=== PATIENT | female | born 1995 | race Caucasian/White ===

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

== ENCOUNTER 2021-11-13 21:05 | Inpatient (IN) ==
[2021-11-13] MEDS ORDERED: OXYTOCIN 30 UNITS/500 ML BAG IV PRN ×3 (21:56→22:33)
[2021-11-13] MEDS ORDERED: LACTATED RINGER'S 1,000 ML IV PRN ×2 (21:56→22:33)
[2021-11-13 22:33] LABS: Hematocrit (blood only) 36.2 % (34.1-44.9); Mean Corpuscular Hemoglobin 28.7 pg (25.0-34.0); Mean Corpuscular Hgb Conc 33.1 g/dL (32.0-36.0); Mean Corpuscular Volume 86.6 fL (80.0-100.0); Mean Platelet Volume 9.8 fL (9.4-12.3); Platelet Count 357 K/uL (130-400); RDW Coefficient of Variation 12.9 % (11.5-14.5); RDW Standard Deviation 40.4 fL (36.4-46.3); Red Blood Count 4.18 M/uL (3.93-5.22); White Blood Count 13.75 K/ul (4.8-10.8)
--- NOTE | 2021-11-14 00:22 | Labor Progress Brief Note ---
Date of Service November 14, 2021 Assessment & Plan (1) PROM (premature rupture of membranes): Plan: PROM at 20;00HR on 11/13/21 Clear fluid Unremarkable course FHR CAT1 VE; 2/50/-2 ctx 2-4mins Plan admit Pitocin augmentation PRN Admission and Anticipated Discharge Date Admission Date: November 13, 2021 Results & Data ([facility]) Vital Signs (Past 12 Hours) Vital Signs Temp Pulse Resp BP 11/13/21 21:24 37.0 C 18 11/13/21 23:49 36.7 C 11/13/21 23:50 81 11/13/21 23:50 123/79 11/13/21 21:23 97 H 140/81
[2021-11-14] MEDS ORDERED: ePHEDrine sulfate 50 MG/ML AMP ONE (03:10)
[2021-11-14] MEDS ORDERED: LIDOCAINE 2%/EPINEPHRINE 1:200,000 20 ML SDV ONE ×2 (03:11→09:31)
[2021-11-14] MEDS ORDERED: BUPIVACAINE 0.25% 30 ML VIAL ONE (03:11)
[2021-11-14] MEDS ORDERED: SODIUM CHLORIDE 0.9% INJ 10 ML VIAL ONE (03:11)
[2021-11-14] MEDS ORDERED: fentaNYL citrate 100 MCG/2 ML VIAL ONE (03:11)
[2021-11-14] MEDS ORDERED: fentaNYL 2MCG/ML ROPIVACAINE 1.25MG/ML 100 ML BAG EPI ONE (03:11)
[2021-11-14] MEDS ORDERED: NALOXONE HCL 1 MG in SODIUM CHLORIDE 0.9% 1000ML 1,000 ML IV PRN (04:15)
[2021-11-14] MEDS ORDERED: NALBUPHINE HCL INJ 10 MG/ML AMP IV PRN (04:15)
[2021-11-14] MEDS ORDERED: ePHEDrine sulfate 50 MG/ML AMP IV PRN (04:15)
[2021-11-14] MEDS ORDERED: ONDANSETRON INJ 2 MG/ML 2 ML VIAL IV PRN (04:15)
[2021-11-14] MEDS ORDERED: diphenhydrAMINE 50 MG/ML VIAL IV PRN (04:15)
[2021-11-14] MEDS ORDERED: NALOXONE HCL 0.4 MG/1 ML VIAL/CARP IV PRN (04:15)
[2021-11-14] MEDS ORDERED: fentaNYL 2MCG/ML ROPIVACAINE 1.25MG/ML 100 ML BAG EPI PRN (04:15)
--- NOTE | 2021-11-14 04:17 | Anesthesiology Consultation ---
Date of Service November 14, 2021 Assessment & Plan (1) Encounter for pre-operative examination: Chart Review Chart Review: Patient NOT seen in Pre Admission Testing and Acceptable Risk for Labor Epidural Consults Requested none History Height/Weight Height: 5 ft 4 in Weight: 104.78 kg Allergies Allergy/AdvReac Type Severity Reaction Status Date / Time No Known Allergies Allergy NONE Unverified 09/11/08 14:08 Medications Home Medications Medication Instructions Recorded Confirmed Last Taken Control Pills 1 tab PO DAILY ##0 07/08/16 Unknown Active Medications Generic Name Dose Route Start Last Admin Trade Name Freq PRN Reason Stop Dose Admin Lactated Ringer's 1,000 mls @ 125 mls/hr 11/13/21 21:56 11/14/21 04:03 Lr IV 11/15/21 21:55 999 mls/hr .Q8H PRN Administration L&D Protocol Protocol Exercise / Class Metabolic Activity II 4-5 Yardwork/Stairs/Walk up hill Past Anesthesia History No Hx of Anesthesia Complications and No Family Hx of Anesthesia Complications History of PONV No Hx of PONV and No Hx of Motion Sickness Social History Smoking Status: Never smoker Do You Dip or Chew Tobacco: No Hx Alcohol Use: No Hx Substance Use: No Physical Exam Vital Signs Last Vital Signs Temp 36.7 C 11/14/21 03:00 Pulse 117 H 11/14/21 04:42 Resp 18 11/14/21 03:00 BP 127/76 11/14/21 04:41 Pulse Ox 98 11/14/21 04:42 Testing Laboratory Results 11/13/21 22:19 Blood Type Cancelled 11/13/21 22:19 Blood Type O Positive 11/13/21 22:19 Antibody Screen Cancelled 11/13/21 22:19 Antibody Screen NEGATIVE 11/13/21 22:19
--- NOTE | 2021-11-14 06:57 | Labor Progress Brief Note ---
Date of Service November 14, 2021 Assessment & Plan (1) PROM (premature rupture of membranes): Plan: Pt doing well Epidural analgesia placed PROM at 20;00HR on 11/13/21 FHR; CAT1 Ctx 3-5mins VE 3/75/-2 Pit; 4mu Admission and Anticipated Discharge Date Admission Date: November 13, 2021 Results & Data ([facility]) Vital Signs (Past 12 Hours) Vital Signs Temp Pulse Resp BP Pulse Ox 11/13/21 21:24 37.0 C 18 11/14/21 06:52 81 95 11/14/21 06:51 86 94 11/14/21 06:47 78 95 11/14/21 06:45 77 111/62 11/14/21 06:42 83 96 11/14/21 06:37 91 H 96 11/14/21 06:32 79 96 11/14/21 06:30 82 18 117/63 11/14/21 06:27 92 H 96 11/14/21 06:22 80 97 11/14/21 06:17 88 100 11/14/21 06:16 98 H 130/80 11/14/21 06:12 75 95 11/14/21 06:10 70 94 11/14/21 06:07 74 95 11/14/21 06:05 80 93 11/14/21 06:02 93 H 95 11/14/21 06:00 18 11/14/21 06:00 85 18 121/66 11/14/21 05:57 79 95 11/14/21 05:56 79 94 11/14/21 05:52 84 95 11/14/21 05:50 79 94 11/14/21 05:47 88 95 11/14/21 05:45 85 117/64 11/14/21 05:42 78 95 11/14/21 05:37 93 H 96 11/14/21 05:32 79 97 11/14/21 05:30 74 18 117/65 11/14/21 05:27 89 97 11/14/21 05:22 88 97 11/14/21 05:17 99 H 98 11/14/21 05:15 96 H 122/72 11/14/21 05:12 94 H 99 11/14/21 05:08 105 H 127/70 11/14/21 05:07 99 H 99 11/14/21 05:00 18 11/14/21 05:00 36.7 C 18 11/14/21 05:03 94 H 125/68 11/14/21 05:02 93 H 99 11/14/21 04:57 101 H 99 11/14/21 04:58 99 H 127/68 11/14/21 04:52 102 H 98 11/14/21 04:53 101 H 126/72 11/14/21 04:51 101 H 126/67 11/14/21 04:49 100 H 122/68 11/14/21 04:47 98 11/14/21 04:47 95 H 11/14/21 04:40 20 11/14/21 04:40 20 11/14/21 04:45 20 11/14/21 04:45 20 11/14/21 04:47 108 H 122/61 11/14/21 04:45 107 H 18 115/62 11/14/21 04:43 96 H 111/57 L 11/14/21 04:42 117 H 98 11/14/21 04:41 90 127/76 11/14/21 04:39 85 132/73 11/14/21 04:37 95 H 99 11/14/21 04:32 101 H 99 11/14/21 04:27 97 H 98 11/14/21 04:05 83 126/76 11/14/21 03:00 36.7 C 71 18 128/73 11/14/21 01:31 36.9 C 11/13/21 23:49 36.7 C 11/13/21 23:50 81 11/13/21 23:50 123/79 11/13/21 21:23 97 H 140/81
--- NOTE | 2021-11-14 07:58 | Obstetrical Progress Note ---
Date of Service November 14, 2021 Assessment & Plan Admission and Anticipated Discharge Date Admission Date: November 13, 2021 Subjective Patient seen and examined. I got a sign out from who admitted her last night for spontaneous rupture of membranes at term. She was started on Pitocin and received epidural for pain. She feels comfortable now. Her has been uncomplicated, GBS negative. I reviewed her records and confirmed with her. She has a remote history of genital herpes and has been on Valtrex twice a day since 36 weeks. No recent outbreak. No symptoms. Vaginal exam, very thin rim of cervix at 9 to 12 o'clock position, 9.5 cm, 90% effaced, head at +1 station, coned head. heart rate reassuring, category 1 with mild short lasting early decelerations with some of the contractions. Continue to monitor closely, start pushing when she feels some pressure. All questions were answered. Results & Data ([facility]) Vital Signs (Past 12 Hours) Vital Signs Temp Pulse Resp BP Pulse Ox 11/13/21 21:24 37.0 C 18 11/14/21 07:52 105 H 100 11/14/21 07:47 92 H 99 11/14/21 07:45 108 H 148/87 H 11/14/21 07:42 102 H 99 11/14/21 07:37 93 H 99 11/14/21 07:32 87 98 11/14/21 07:30 83 122/69 11/14/21 07:27 89 98 11/14/21 07:25 87 94 11/14/21 07:22 91 H 95 11/14/21 07:17 85 95 11/14/21 07:15 85 123/64 11/14/21 07:12 89 96 11/14/21 07:07 85 95 11/14/21 07:06 85 94 11/14/21 07:02 88 96 11/14/21 07:00 85 117/65 11/14/21 06:57 96 11/14/21 06:57 95 H 11/14/21 06:57 82 94 11/14/21 06:52 81 95 11/14/21 06:51 86 94 11/14/21 06:47 78 95 11/14/21 06:45 77 111/62 11/14/21 06:42 83 96 11/14/21 06:37 91 H 96 11/14/21 06:32 79 96 11/14/21 06:30 82 18 117/63 11/14/21 06:27 92 H 96 11/14/21 06:22 80 97 11/14/21 06:17 88 100 11/14/21 06:16 98 H 130/80 11/14/21 06:12 75 95 11/14/21 06:10 70 94 11/14/21 06:07 74 95 11/14/21 06:05 80 93 11/14/21 06:02 93 H 95 11/14/21 06:00 18 11/14/21 06:00 85 18 121/66 11/14/21 05:57 79 95 11/14/21 05:56 79 94 11/14/21 05:52 84 95 11/14/21 05:50 79 94 11/14/21 05:47 88 95 11/14/21 05:45 85 117/64 11/14/21 05:42 78 95 11/14/21 05:37 93 H 96 11/14/21 05:32 79 97 11/14/21 05:30 74 18 117/65 11/14/21 05:27 89 97 11/14/21 05:22 88 97 11/14/21 05:17 99 H 98 11/14/21 05:15 96 H 122/72 11/14/21 05:12 94 H 99 11/14/21 05:08 105 H 127/70 11/14/21 05:07 99 H 99 11/14/21 05:00 18 11/14/21 05:00 36.7 C 18 11/14/21 05:03 94 H 125/68 11/14/21 05:02 93 H 99 11/14/21 04:57 101 H 99 11/14/21 04:58 99 H 127/68 11/14/21 04:52 102 H 98 11/14/21 04:53 101 H 126/72 11/14/21 04:51 101 H 126/67 11/14/21 04:49 100 H 122/68 11/14/21 04:47 98 11/14/21 04:47 95 H 11/14/21 04:40 20 11/14/21 04:40 20 11/14/21 04:45 20 11/14/21 04:45 20 11/14/21 04:47 108 H 122/61 11/14/21 04:45 107 H 18 115/62 11/14/21 04:43 96 H 111/57 L 11/14/21 04:42 117 H 98 11/14/21 04:41 90 127/76 11/14/21 04:39 85 132/73 11/14/21 04:37 95 H 99 11/14/21 04:32 101 H 99 11/14/21 04:27 97 H 98 11/14/21 04:05 83 126/76 11/14/21 03:00 36.7 C 71 18 128/73 11/14/21 01:31 36.9 C 11/13/21 23:49 36.7 C 11/13/21 23:50 81 11/13/21 23:50 123/79 11/13/21 21:23 97 H 140/81
--- NOTE | 2021-11-14 08:49 | Obstetrical Progress Note ---
Date of Service November 14, 2021 Assessment & Plan Admission and Anticipated Discharge Date Admission Date: November 13, 2021 Subjective Patient has been pushing for about 1/2 hour Head at +2 between ctxs and +3 with pushing FHR categ I Continue to monitor closely and pushing Anticipate Results & Data ([facility]) Vital Signs (Past 12 Hours) Vital Signs Temp Pulse Resp BP Pulse Ox 11/13/21 21:24 37.0 C 18 11/14/21 08:42 129 H 100 11/14/21 08:37 111 H 100 11/14/21 08:32 113 H 100 11/14/21 08:30 116 H 141/78 H 11/14/21 08:27 120 H 100 11/14/21 08:22 112 H 100 11/14/21 08:17 97 H 100 11/14/21 08:16 105 H 132/90 11/14/21 08:12 90 100 11/14/21 08:07 94 H 100 11/14/21 08:02 100 11/14/21 08:02 89 11/14/21 08:02 110 H 135/63 11/14/21 07:57 96 H 100 11/14/21 07:52 105 H 100 11/14/21 07:47 92 H 99 11/14/21 07:45 108 H 148/87 H 11/14/21 07:42 102 H 99 11/14/21 07:37 93 H 99 11/14/21 07:32 87 98 11/14/21 07:30 83 122/69 11/14/21 07:27 89 98 11/14/21 07:25 87 94 11/14/21 07:22 91 H 95 11/14/21 07:17 85 95 11/14/21 07:15 85 123/64 11/14/21 07:12 89 96 11/14/21 07:07 85 95 11/14/21 07:06 85 94 11/14/21 07:02 88 96 11/14/21 07:00 85 117/65 11/14/21 06:57 96 11/14/21 06:57 95 H 11/14/21 06:57 82 94 11/14/21 06:52 81 95 11/14/21 06:51 86 94 11/14/21 06:47 78 95 11/14/21 06:45 77 111/62 11/14/21 06:42 83 96 11/14/21 06:37 91 H 96 11/14/21 06:32 79 96 11/14/21 06:30 82 18 117/63 11/14/21 06:27 92 H 96 11/14/21 06:22 80 97 11/14/21 06:17 88 100 11/14/21 06:16 98 H 130/80 11/14/21 06:12 75 95 11/14/21 06:10 70 94 11/14/21 06:07 74 95 11/14/21 06:05 80 93 11/14/21 06:02 93 H 95 11/14/21 06:00 18 11/14/21 06:00 85 18 121/66 11/14/21 05:57 79 95 11/14/21 05:56 79 94 11/14/21 05:52 84 95 11/14/21 05:50 79 94 11/14/21 05:47 88 95 11/14/21 05:45 85 117/64 11/14/21 05:42 78 95 11/14/21 05:37 93 H 96 11/14/21 05:32 79 97 11/14/21 05:30 74 18 117/65 11/14/21 05:27 89 97 11/14/21 05:22 88 97 11/14/21 05:17 99 H 98 11/14/21 05:15 96 H 122/72 11/14/21 05:12 94 H 99 11/14/21 05:08 105 H 127/70 11/14/21 05:07 99 H 99 11/14/21 05:00 18 11/14/21 05:00 36.7 C 18 11/14/21 05:03 94 H 125/68 11/14/21 05:02 93 H 99 11/14/21 04:57 101 H 99 11/14/21 04:58 99 H 127/68 11/14/21 04:52 102 H 98 11/14/21 04:53 101 H 126/72 11/14/21 04:51 101 H 126/67 11/14/21 04:49 100 H 122/68 11/14/21 04:47 98 11/14/21 04:47 95 H 11/14/21 04:40 20 11/14/21 04:40 20 11/14/21 04:45 20 11/14/21 04:45 20 11/14/21 04:47 108 H 122/61 11/14/21 04:45 107 H 18 115/62 11/14/21 04:43 96 H 111/57 L 11/14/21 04:42 117 H 98 11/14/21 04:41 90 127/76 11/14/21 04:39 85 132/73 11/14/21 04:37 95 H 99 11/14/21 04:32 101 H 99 11/14/21 04:27 97 H 98 11/14/21 04:05 83 126/76 11/14/21 03:00 36.7 C 71 18 128/73 11/14/21 01:31 36.9 C 11/13/21 23:49 36.7 C 11/13/21 23:50 81 11/13/21 23:50 123/79 11/13/21 21:23 97 H 140/81
[2021-11-14] MEDS ORDERED: MINERAL OIL 30 ML UDC ONE (09:03)
[2021-11-14] MEDS ORDERED: LIDOCAINE/EPINEPHRINE 1% 20 ML VIAL ONE (09:31)
[2021-11-14] MEDS ORDERED: LIDOCAINE 2% LOCAL 20 ML VIAL ONE (09:32)
[2021-11-14] MEDS ORDERED: oxyCODONE/ACETAMINOPHEN 5mg/325mg TAB PO PRN (09:52)
[2021-11-14] MEDS ORDERED: HYDROCORTISONE ACETATE 25 MG SUPP PR PRN (09:52)
[2021-11-14] MEDS ORDERED: ACETAMINOPHEN 325 MG TAB PO PRN (09:52)
[2021-11-14] MEDS ORDERED: OXYTOCIN 30 UNITS/500 ML BAG IV PRN (09:52)
[2021-11-14] MEDS ORDERED: DIPHTHERIA/TETANUS/PERTUSSIS 0.5 ML SYR/VIAL IM ONE (09:52)
[2021-11-14] MEDS ORDERED: BENZOCAINE 20% AER SPR 82.5 GM CAN EXT PRN (09:52)
[2021-11-14] MEDS ORDERED: MEASLES, MUMPS & RUBELLA VIRUS VIAL SQ ONE (09:52)
[2021-11-14] MEDS ORDERED: bisacodyL 10 MG SUPP PR PRN (09:52)
--- NOTE | 2021-11-14 09:56 | Delivery Summary ---
Vaginal Delivery Summary Date of Service November 14, 2021 Vaginal Delivery Summary Patient pushed about 50 minutes and delivered the head without difficulty. Shoulders were delivered with minimal traction and the baby was handed to the mother that her mouth and nose were suctioned. The cord was clamped times and cut at 1 minute delay. The baby was vigorously moving and crying at that point. Then the vagina and perineum were checked for lacerations. There was a second- degree perineal laceration extending into the vagina mucosa. Rectal exam was done and confirmed to have excellent sphincter tone. The gloves were changed and perineal body muscles around the sphincter were held with Allis clamps and reapproximated with [id number] stitches x3. And the rectal exam was repeated and no sutures were felt and again excellent sphincter tone was noted. The gloves were changed and the vagina mucosa was repaired with 2-0 Vicryl in a running fashion skin in subcuticular fashion. Excellent hemostasis achieved. Then the placenta was found to be the vagina, delivered spontaneously as intact and complete. Uterus was explored and found to be empty. The lower segment was cleared of all clots and debris. EBL was 100 mL and the fundus was firm. Mom and baby tolerated procedure well. There was a viable male infant, Apgars were 8/9 and weight is pending. The sponge needle instrument count was correct x2. No complications happened and I was present during whole procedure.
--- NOTE | 2021-11-14 11:06 | Anesthesia Procedure Note ---
Date of Service November 14, 2021 Anesthesia Post Epidural Note Vital Signs Vital Signs: Temp Pulse Resp BP Pulse Ox 36.7 C 96 H 18 118/70 99 11/14/21 05:00 11/14/21 09:49 11/14/21 06:30 11/14/21 09:49 11/14/21 09:07 Notes Mental Status: alert / awake / arousable and participated in evaluation Nausea / Vomiting: adequately controlled Pain: adequately controlled Airway Patency, RR, SpO2: stable & adequate BP & HR: stable & adequate Hydration State: stable & adequate Neuraxial Anesthesia: was administered and sensory block is resolving Anesthetic Complications: no major complications apparent and Pt Satisfied with anesthetic care Epidural: Removed without complications and With tip intact
[2021-11-14] MEDS: IBUPROFEN 600 MG TAB PO PRN ×2 (15:41→21:37)
[2021-11-14] MEDS: DOCUSATE SODIUM 100 MG CAP PO SCH (20:38)
[2021-11-15] MEDS: IBUPROFEN 600 MG TAB PO PRN ×4 (03:08→21:57)
[2021-11-15 07:42] LABS: Hematocrit (blood only) 32.3 % (34.1-44.9); Hemoglobin 10.5 g/dl (12.0-16.0); Mean Corpuscular Hemoglobin 28.8 pg (25.0-34.0); Mean Corpuscular Hgb Conc 32.5 g/dL (32.0-36.0); Mean Corpuscular Volume 88.5 fL (80.0-100.0); Platelet Count 281 K/uL (130-400); RDW Coefficient of Variation 13.3 % (11.5-14.5); RDW Standard Deviation 43.2 fL (36.4-46.3); Red Blood Count 3.65 M/uL (3.93-5.22); White Blood Count 14.64 K/ul (4.8-10.8)
--- NOTE | 2021-11-15 09:27 | Obstetrical Progress Note ---
Date of Service November 15, 2021 Subjective Ambulation: ambulating normally Voiding: no voiding problems Passing Gas:: No Diet Tolerance:: regular diet Lochia:: Small Feeding Type:: breast feeding Current Pain Level(1-10): 0 doing well Physical Exam Constitutional WD/WN, vitals as above Gastrointestinal (Abdomen) normal bowel sounds, soft, nontender, no hepatosplenomegaly Musculoskeletal Extremities: extremities normal to inspection no edema. neg Susana's Skin no rashes, warm and dry Neurologic patellar DTR's 2+ bilat, sensation intact Psychiatric A+Ox3, euthymic affect Results & Data ([facility]) Vital Signs (Past 12 Hours) Vital Signs Temp Pulse Resp BP Pulse Ox O2 Del Method 11/15/21 03:00 36.4 C L 78 16 104/70 98 Room Air 11/15/21 00:35 36.7 C 82 20 108/61 96 Room Air Laboratory Results 11/13/21 11/13/21 11/13/21 21:55 22:19 22:19 WBC 13.75 H RBC 4.18 Hgb 12.0 Hct 36.2 MCV 86.6 MCH 28.7 MCHC 33.1 RDW Std Deviation 40.4 RDW Coeff of Bhupendra 12.9 Plt Count 357 MPV 9.8 SARS-CoV-2, RNA, NAAT NEGATIVE Blood Type O Positive Antibody Screen NEGATIVE 11/13/21 11/15/21 22:19 07:12 WBC 14.64 H RBC 3.65 L Hgb 10.5 L Hct 32.3 L MCV 88.5 MCH 28.8 MCHC 32.5 RDW Std Deviation 43.2 RDW Coeff of Bhupendra 13.3 Plt Count 281 MPV 10.0 SARS-CoV-2, RNA, NAAT Blood Type Cancelled Antibody Screen Cancelled
--- NOTE | 2021-11-15 09:33 | Labor Progress Brief Note ---
Date of Service November 15, 2021 Assessment & Plan Admission and Anticipated Discharge Date Admission Date: November 13, 2021 Physical Exam Genitourinary: OB Exam Monitor Tracing: + external FHT monitor used, + external uterine monitor used and + category I contractions have subsided since coming in. Will d/c home in false labor. Results & Data ([facility]) Vital Signs (Past 12 Hours) Vital Signs Temp Pulse Resp BP Pulse Ox O2 Del Method 11/15/21 03:00 36.4 C L 78 16 104/70 98 Room Air 11/15/21 00:35 36.7 C 82 20 108/61 96 Room Air
[2021-11-15] MEDS: PRENATAL VITAMIN 1 TAB PO SCH (10:05)
[2021-11-15] MEDS: FERROUS SULFATE 325 MG TAB PO SCH (10:05)
[2021-11-15] MEDS: DOCUSATE SODIUM 100 MG CAP PO SCH ×2 (10:05→21:57)
[2021-11-15] MEDS ORDERED: bisacodyL 5 MG TABEC PO SCH (20:00)
[2021-11-15] MEDS ORDERED: POLYETHYLENE (MIRALAX) 17 GM PACK PO PRN (21:38)
[2021-11-16 08:47] LABS: Hematocrit (blood only) 33.4 % (34.1-44.9); Hemoglobin 11.1 g/dl (12.0-16.0)
[2021-11-16] MEDS: FERROUS SULFATE 325 MG TAB PO SCH (09:03)
[2021-11-16] MEDS: PRENATAL VITAMIN 1 TAB PO SCH (09:03)
[2021-11-16] MEDS: IBUPROFEN 600 MG TAB PO PRN (09:03)
[2021-11-16] MEDS: DOCUSATE SODIUM 100 MG CAP PO SCH (09:03)
--- NOTE | 2021-11-16 11:04 | Obstetrical Progress Note ---
Date of Service November 16, 2021 Assessment & Plan (1) Normal course: PPD #1 Pt doing well no complaints disch home with instructions Subjective Ambulation: ambulating normally Voiding: no voiding problems Passing Gas:: Yes Diet Tolerance:: regular diet Lochia:: Small Feeding Type:: breast feeding Review of Systems All systems reviewed & are unremarkable except as noted in HPI & below Physical Exam Constitutional WD/WN, vitals as above well developed and well nourished Eyes PERRL, conjunctivae normal, anicteric sclerae Neck trachea midline, no thyromegaly Respiratory normal respiratory effort, lungs clear to auscultation Auscultation: no crackles, no rales and no wheezes Cardiovascular RRR, no murmur, no edema Gastrointestinal (Abdomen) normal bowel sounds, soft, nontender, no hepatosplenomegaly Uterus is below umbilicus Musculoskeletal no cyanosis or clubbing, extremities motor strength 5/5 Skin no rashes, warm and dry Neurologic patellar DTR's 2+ bilat, sensation intact Psychiatric A+Ox3, euthymic affect Genitourinary normal external appearance Results & Data ([facility]) Vital Signs (Past 12 Hours) Vital Signs Temp Pulse Resp BP Pulse Ox O2 Del Method 11/16/21 08:20 36.3 C L 99 H 18 118/79 98 Room Air 11/16/21 00:15 36.8 C 94 H 18 117/74 98 Room Air
== END 2021-11-16 14:10 | disposition home or self-care (01) | DRG 807 ==
LOC: OPB 21:05 → 4S1 21:07 → 4E2 11-14 14:28

== ENCOUNTER 2023-08-02 04:30 | Inpatient (IN) ==
[2023-08-02] MEDS: OXYTOCIN 30 UNITS/NSS 30 UNITS/500 ML BAG IV PRN (04:50)
[2023-08-02] MEDS ORDERED: LACTATED RINGER'S 1,000 ML IV PRN (05:02)
--- NOTE | 2023-08-02 05:08 | History & Physical Report ---
Date of Service August 02, 2023 Assessment & Plan (1) Term : Plan: Admission and Anticipated Discharge Date Admission Date: August 02, 2023 History of Present Illness Chief Complaint: labor Primary Care Provider: [facility] PCP Mike F [id number] at 38.4 weeks presents to L&D in active labor ready to push. She is fully dilated on admission and AROM with Amni-hook done with thick meconium fluid noted. Allergies Allergy/AdvReac Type Severity Reaction Status Date / Time No Known Allergies Allergy NONE Unverified 09/11/08 14:08 Home Medications Medication Instructions Recorded Confirmed Type ibuprofen 600 mg tablet 600 mg PO Q6H PRN fever or pain 11/15/21 Rx #30 tabs breast pump #1 ea 11/16/21 Rx Patient History Social History Smoking Status: Never smoker Second Hand Exposure: No; Do You Dip or Chew Tobacco: No; Hx Alcohol Use: No Hx Substance Use: No Preferred Language: Urdu Communication Ability: Effective Tamale Machine Feeder Required: No Beliefs That Will Affect Care: None marital status: Single Current Living Situation: Significant Other Feels Safe at Home: Yes 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 neg Review of Systems All systems reviewed & are unremarkable except as noted in HPI & below Physical Exam Constitutional: WD/WN, vitals as above Eyes: PERRL, conjunctivae normal, anicteric sclerae Respiratory: normal respiratory effort, lungs clear to auscultation Cardiovascular: Rate/Rhythm: regular rate and regular rhythm Gastrointestinal (Abdomen): Inspection/Auscultation: abdomen normal to inspection Musculoskeletal: Extremities: extremities normal to inspection Skin: no rashes, warm and dry Neurologic: patellar DTR's 2+ bilat, sensation intact Psychiatric: A+Ox3, euthymic affect Genitourinary: no vaginal lesions, no adnexal mass normal external appearance OB Exam Abdomen: + fundal height and + vertex Manual OB Exam: + cervical dilation 10 cm, + cervical effacement 100%, + station + 1 and + amniotic fluid meconium Code Status & VTE Plan VTE Prophylaxis Plan VTE Prophylaxis will be ordered: No Monitoring External Monitor Cat 1
--- NOTE | 2023-08-02 05:11 | Delivery Summary ---
Vaginal Delivery Summary Date of Service August 02, 2023 Vaginal Delivery Summary live female SUSAN over intact perineum with nuchal cord x1 reduced at delivery. Apgars 7/8 weight pending. Cord blood obtained followed by spontaneous delivery of intact placenta. No tears. QBL 302 ml. Final sponge and instrument count are correct. Mom and baby stable.
[2023-08-02] MEDS ORDERED: ACETAMINOPHEN 325 MG TAB PO PRN (05:50)
[2023-08-02] MEDS ORDERED: OXYTOCIN 30 UNITS/NSS 30 UNITS/500 ML BAG IV PRN (05:50)
[2023-08-02] MEDS ORDERED: HYDROCORTISONE ACETATE 25 MG SUPP PR PRN (05:50)
[2023-08-02] MEDS ORDERED: NON-FORMULARY MEDICATION (Breast Pump device) SCH (05:50)
[2023-08-02] MEDS ORDERED: IBUPROFEN 600 MG TAB PO PRN (05:50)
[2023-08-02 06:00] LABS: Hematocrit (blood only) 36.4 % (37.0-47.0); Hemoglobin 12.1 g/dl (12.0-16.0); Mean Corpuscular Hemoglobin 28.7 pg (25.0-34.0); Mean Corpuscular Hgb Conc 33.2 g/dL (32.0-36.0); Mean Corpuscular Volume 86.3 fL (80.0-100.0); Mean Platelet Volume 11.1 fL (9.4-12.4); Platelet Count 268 K/uL (130-400); RDW Standard Deviation 43.1 fL (36.4-46.3); Red Blood Count 4.22 M/uL (4.20-5.40); White Blood Count 12.07 K/ul (4.8-10.8)
[2023-08-02] MEDS: FERROUS SULFATE 325 MG TAB PO SCH (09:27)
[2023-08-02] MEDS: PRENATAL VITAMIN 1 TAB PO SCH (09:27)
[2023-08-02] MEDS: DOCUSATE SODIUM 100 MG CAP PO SCH (09:27)
[2023-08-02] MEDS: LIDOCAINE 2% LOCAL 20 ML VIAL ONE (13:35)
--- NOTE | 2023-08-02 14:31 | Procedure Note ---
Procedure Note Date of Service August 02, 2023 Note Patient was delivered by Dr Car this morning and was called to have intact perineum and vagina. I was called by her nurse that she has had episodes of heavy VBX2 and her fundus was firm and blood was more fresh, bright red in color. She suspected perineal tear/ laceration. Patient was brought to the exam room, placed on dorsal lithotomy position. The vagina and perineum were checked and found to have 2ND degree perineal laceration. Lidocaine was used for local anesthesia. Rectal exam was done and sphincter tone noted but there was a defect of muscular tissue around ext. anal sphincter. Making it partial 3rd degree. The gloves were changes. The perineal body muscles around the sphincter were held with Allis clamps and brought to the midline. Those were reapproximated with multiple figure of 8 sutures to support sphincter. Rectal exam was repeated and good sphincter tone was noted and no sutures were felt. The vaginal mucosa was repaired with another 2/0 vicryl in running fashion and skin on subcuticular fashion. Excellent hemostasis was achieved. The rest of the vagina and labia were intact. There noted to be a suburethral cyst, about 2x2 cm under urethral orifice, bladder was emptied catheter, 500 ml urine was obtained. No complications happened and I was present during whole procedure. She has tolerated the procedure well. Coding
[2023-08-02] MEDS: IBUPROFEN 600 MG TAB PO PRN (14:37)
[2023-08-02] MEDS: BENZOCAINE 20% SPRY 85 APPLN/85 GM CAN EXT PRN (14:38)
[2023-08-02] MEDS: LIDOCAINE 1% LOCAL 20 ML VIAL INFIL PRN (15:15)
[2023-08-02] MEDS: DIPHTHER/TETAN/PERTUS Vaccine (Tdap, Adol/Adult) 0.5mL IM ONE (18:12)
[2023-08-03 07:09] LABS: Hematocrit (blood only) 30.1 % (37.0-47.0); Hemoglobin 9.9 g/dl (12.0-16.0); Mean Corpuscular Hemoglobin 28.8 pg (25.0-34.0); Mean Corpuscular Hgb Conc 32.9 g/dL (32.0-36.0); Mean Corpuscular Volume 87.5 fL (80.0-100.0); Mean Platelet Volume 10.9 fL (9.4-12.4); Platelet Count 269 K/uL (130-400); RDW Coefficient of Variation 14.5 % (11.5-14.5); RDW Standard Deviation 45.3 fL (36.4-46.3); Red Blood Count 3.44 M/uL (4.20-5.40); White Blood Count 12.03 K/ul (4.8-10.8)
--- NOTE | 2023-08-03 08:19 | Obstetrical Progress Note ---
Date of Service August 03, 2023 Assessment & Plan (1) Third degree perineal laceration during delivery: Patient aware of 3rd degree laceration at time of delivery-repaired by Dr Dali barone BID for 30 days (2) Normal course: Continue routine PP care d/c home today with instructions Subjective Ambulation: ambulating normally Voiding: no voiding problems Passing Gas:: Yes Diet Tolerance:: regular diet Lochia:: Small Feeding Type:: breast feeding Current Pain Level(1-10): 2 Breast and formula feeding Wants to go home today Physical Exam Constitutional WD/WN, vitals as above Respiratory normal respiratory effort, lungs clear to auscultation Cardiovascular RRR, no murmur, no edema Gastrointestinal (Abdomen) normal bowel sounds, soft, nontender, no hepatosplenomegaly fundus below U Results & Data Vital Signs (Past 12 Hours) Vital Signs Temp Pulse Resp BP Pulse Ox O2 Del Method 08/03/23 02:18 36.8 C 90 18 123/81 98 Room Air 08/02/23 22:56 36.7 C 84 18 103/66 97 Room Air
[2023-08-03] MEDS ORDERED: bisacodyL 5 MG TABEC PO SCH (20:00)
[2023-08-04] MEDS ORDERED: bisacodyL 10 MG SUPP PR PRN
--- OUTSIDE RECORDS SUMMARY | 2023-08-04 06:30 | External Medical Summary | Summary of Care ---
Author Name Unknown Organization [facility] Address [address] [facility] [place] [address] Phone [phone] Care Team Providers Care Pitch Filler Name Role Phone Aruna Valero Primary Care Provider [phone] Encounter Details Date Type Department Care Team (Latest Contact Info) Description 07/31/2023 2:30 PM EDT Office Visit Gynecology/Obstetric s Jose'emerson Salazar [address] [place] [address] Cyril Claire MD [address] [place] [address] Martin, Non Stress Tests Peter [address] [place] [address] Obesity, Class II, BMI 35-39.9, isolated (see actual BMI)*; Herpes simplex infection of genitourinary system; Supervision of other normal , antepartum; Excessive growth, antepartum, single or unspecified fetus; renal anomaly, single gestation Allergies No known active allergiesdocumented as of this encounter (statuses as of 07/31/2023) Medications Medication Sig Dispensed Refills Start Date End Date Status Vitamin 27-0.8 MG Oral Tablet Take by mouth. 0 Active valACYclovir HCl 500 MG Oral Tablet (Valtrex)Indications: Herpes simplex infection of genitourinary system Take 1 Tablet by mouth in the morning and 1 Tablet before bedtime. Starting at 36 weeks until delivery.. 60 Tablet 1 07/10/2023 Active documented as of this encounter (statuses as of 07/31/2023) Active Problems Problem Noted Date Diagnosed Date Excessive growth, antepartum 07/12/2023 Overview: AC 97% at 35 weeks MFM did not recommend repeat 3 hour gtt, healthy diet/exercise Repeat growth in 3-4 weeks renal anomaly, single gestation 07/12/2023 Overview: Rt. Urinary Tract Dilation (UTD) at 35 weeks. MFM recommended pediatrics be made aware.@ delivery Uterine size date discrepancy 06/13/19 24 Supervision of other normal , antepartu m 01/08/2023 Herpes simplex infection of genitourinary system 04/20/2021 Obesity, Class II, BMI 35-39.9, isolated (see ac tual BMI) 05/10/2017 Overview: Early glucola Serial growth u/s NST weekly at 37w Eczema 02/07/2016 Irritable bowel syndrome with constipation 02/06 Estimated Date of Delivery Comme nts Yes 08/12/2023 Based on last me nstrual period of 11/05/2022 (Exact Date) documented as of this encounter (statuses as of 07/31/2023) Resolved Problems Problem Noted Date Diagnosed Date Resolved Date Abnormal glucose tolerance i n mother complicating 06/05/2021 09/28/2021 Overview: Failed early glucola. 3hr GTT WNL Supervision of normal first , antepartum 05/04/2021 11/17/2021 Obesity, Class I, BMI 30.0-3 4.9 (see actual BMI) 05/04/2021 11/17/2021 Overview: Early glucola HSV (herpes simplex virus) infection 05/04/2021 11/17/2021 Overview: Valtrex at 36w Oral contraceptive use 05/10/201704/20 Genital herpes 05/10/2017 04/20/2021 TMJ (dislocation of temporomandibular joint) 4 02/07/2016 Headache 04/27/2013 12/15/2018 Overview: ICD-10 update of inactive term Likely tension-type No aura. Overweight, pediatric, BMI 8 5.0-94.9 percentile for age 0710/05/2009 02/07/2016 Other atopic dermatitis 12/11/200710/2015 Overview: ICD-10 update of inactive term documented as of this encounter (statuses as of 07/31/2023) Immunizations Name Administration Dates Next Due DTaP Dipth/Tet/Acell Pertussis (Infanrix), Peds 12/14/2002,07/05/1998,1997,05/25,1997 H1N1 2009 Influenza, IM 02/01/2009 HPV Vaccine, 4-Valent 02/25/2013 Hepatitis B, 0-19 yrs 1997,1997,1006/1996 IPV - Polio Virus Vaccine (Inact) 2002,07/05/1998,1997,03/23 MMR - Measles/Mumps/Rubella Vaccine 12/14/2002,0 07/05/1998 Meningococcal Conjugate Vacc ine (Menactra/Menveo) 07/06/2014,10/05/2008 PPD 04/20/2021 Seasonal Influenza Intranasal 12/15/2008, 008,02/05/2007 Seasonal Influenza, PF, 6 M & above, IM , (FluLaval or Fluzone) 12/15/2018,01/14/2017 Seasonal Influenza, Quadriva lent, No Preserve, IM 02/07/2016 Seasonal Influenza, Split, I IV3, With Preserve, Inj 01/13/2013 TDAP (age 10 and older)(Boostrix) 05/16/2023,04/2021,07/06/2014 TDAP (age 11 and older)(Adacel) 10/05/2008 Varicella Vaccine (Chicken Pox) 10/05/2008,07/05 documented as of this encounter Social History Tobacco Use Types Packs/Day Years Used Date Smoking Tobacco: Never Smokeless Tobacco: Never Alcohol Use Standard Drinks/Week Comments Not Currently 0 (1 standard drink = 0.6 oz pur e alcohol) ocas PHQ-2 Answer Date Recorded PHQ Adult Total Score 0 07/10/2023 Hunger Vital Sign Answer Date Recorded Within the past 12 months, y ou worried that your food would run out before you got the money to buy more. Never true 07/10/19 23 Within the past 12 months, t he food you bought just didn't last and you didn't have money to get more. Never true 07/09/2022 [place] Depression Scale Answer Date Recorded [place] Depression Scale Total 3 07/10/2023 The thought of harming myself has occurred to me . Never 07/10/2023 Estimated Date of Delivery Comme nts Yes 08/12/2023 Based on last me nstrual period of 11/05/2022 (Exact Date) Sex and Gender Information Value Date Recorded Sex Assigned at Female 03/09/2019 2:54 PM EST Gender Identity Female 03/09/2019 2:54 PM EST Sexual Orientation Straight 03/09/2019 2: 54 PM EST Job Start Date Occupation Industry Not on file Not on file Not on file documented as of this encounter Last Filed Vital Signs Vital Sign Reading Time Taken Comments Blood Pressure 120/70 07/31/2023 2:36 PM EDT Pulse - - Temperature - - Respiratory Rate - - Oxygen Saturation - - Inhaled Oxygen Concentration - - Weight 106.6 kg (235 lb) 07/31/2023 2:36 PM EDT Height 162.6 cm (5' 4") 07/31/2023 2:36 PM EDT Body Mass Index 40.34 07/31/2023 2:36 PM EDT documented in this encounter Progress Notes * Cyril [place] MD - 07/31/2023 3:34 PM EDT 1st time seeing pt No complaints 1.Fetus had urinary tract dilation(UTD) -Peds to be notified @ delivery 2. Herpes on Valtrex prophylaxis Obesity ; BMI >40 ASSESSMENT assessment with Non-stress Test completed on 07/31/2023 at 38weeks gestation for indication of obesity heart baseline: 140 bpm Variability: Moderate Decelerations: absent Accelerations: present Contractions: Present but minimal NST start time: 14;35 NST stop time: 1500 NST strip reviewed, interpreted, and approved by OB provider, audi. NST strip stored in clinic storage file Cyril [place] MD 07/31/2023 3:37 PM r documented in this encounter Plan of Treatment Upcoming Encounters Date Type Department Care Team (Late st Contact Info) Description 08/08/2023 9:00 AM EDT Office Visit Gynecology/Obstetrics Humberto Salazar [address] [place] [address] Emilia Gross PA-C [address] [place] [address] [place] [address] Mela Salazar Stress Tests [place] [address] [place] [address] Health Maintenance Due Date Last Done Comments GARDASIL-HPV IMMUNIZATION SERIES (2 - 3-dose series) 03/25/2013 02/25/2013 COVID-19 Vaccine (2022- season) 2022 Influenza Vaccine (FLU shot) (Season Ended) 2023 12/15/2018, 01/14/2017, 02/07/2016, Additional history exists Pap Smear 12/30/2023 12/29/2020, 05/06/2018 Depression Screening 07/09/2024 07/10/2023 DTaP,Tdap,and Td Vaccines (10 - Td or Tdap) 05/16/2033 05/16/2023, 09/29/2021, 07/06/2014, Additional history exists Hepatitis B Completed 1997, 03/02, 1997 MENINGOCOCCAL (MENACTRA/MENVEO) Completed 07/06/2014, 10/05/2008 Gonorrhea / Chlamydia Screen Discontinued 01/08/2023, 05/04/2021, 02/15/2020, Additional history exists Pneumococcal Vaccine: Pediatrics (0 to 5 Years) and At-Risk Patients (6 to 64 Years) Aged Out No longer eligible based on patient's age to complete this topic documented as of this encounter Medical Devices Not on filedocumented as of this encounter Visit Diagnoses Diagnosis Obesity, Class II, BMI 35-39.9, isolated (see actual BMI)- Primary Morbid obesity Herpes simplex infection of genitourinary system Supervision of other normal , antepartum Excessive growth, antepartum, single or unspecified fetus renal anomaly, single gestation documented in this encounter Care Teams Pitch Filler Relationship Specialty Start Date End Date Aruna Valero DO [address] [place] [address] [place] [id number] PCP - General Internal Medicine 02/07/16 documented as of this encounter
--- OUTSIDE RECORDS SUMMARY | 2023-08-04 06:30 | External Medical Summary | Summary of Care ---
Author Name Unknown Organization [facility] Address [address] [facility] [place] [address] Phone [phone] Care Team Providers Care Medical Observer Name Role Phone Aruna Valero Primary Care Provider Encounter Details Date Type Department Care Team (Late st Contact Info) Description 08/01/2023 Telephone Gynecology/Obstetrics [facility] [address] [place] [address] [place] Garcia PA-C [address] [place] [address] Allergies No known active allergiesdocumented as of this encounter (statuses as of 08/01/2023) Medications Medication Sig Dispensed Refills Start Date [...] as of this encounter (statuses as of 08/01/2023) Active Problems Problem Noted Date Diagnosed Date [...] as of this encounter (statuses as of 08/01/2023) Resolved Problems Problem Noted Date Diagnosed Date [...] as of this encounter (statuses as of 08/01/2023) Immunizations Name Administration Dates Next Due DTaP Dipth/Tet/Acell Pertussis (Infanrix), Peds 12/14/2002,07/05/1998,1997,05/25,1997 H1N1 2009 Influenza, IM 02/01/2009 HPV Vaccine, 4-Valent 02/25/2013 Hepatitis B, 0-19 yrs 1997,1997,06/1996 IPV - Polio Virus Vaccine (Inact) 2002,07/05/1998,1997,03/23 [...] money to get more. Never true 07/09/2022 [place] Depression Scale Answer Date Recorded [place] Depression Scale Total 3 07/10/2023 The thought [...] on file documented as of this encounter Miscellaneous Notes * Telephone Encounter - [place] Garcia PA-C - 08/01/2023 8:42 AM EDT Please let her know ultrasound of baby from yesterday showed normal growth, fluid levels and baby is head down. Baby's right kidney still appeared dilated. Will continue with MFM advice previously --plan to make pediatrics aware at delivery. documented in this encounter Plan of Treatment Upcoming Encounters Date Type Department Care Team (Late st Contact Info) Description 08/08/2023 9:00 AM EDT Office Visit Gynecology/Obstetrics Garcia'emerson Salazar [address] [place] [address] [place] Gross PA-C [address] [place] [address] [place] [address] [place], Non Stress Tests Peter [address] [place] [address] Health Maintenance Due Date Last Done Comments GARDASIL-HPV IMMUNIZATION SERIES (2 - 3-dose series) 03/25/2013 02/25/2013 COVID-19 Vaccine ( season) 2022 Influenza Vaccine (FLU shot) (Season [...] Not on filedocumented as of this encounter Care Teams Medical Observer Relationship Specialty Start Date End Date Aruna Valero DO [address] [place] [address] [place] [id number] PCP - General Internal Medicine 02/07/16 documented as of this encounter
--- OUTSIDE RECORDS SUMMARY | 2023-08-04 06:30 | External Medical Summary | Summary of Care ---
Author Name Unknown Organization [facility] Address [address] [facility] [place] [address] Phone [phone] Care Team Providers Care Master Rigger Name Role Phone Aruna Valero Primary Care Provider Reason for Visit * Reason Onset Date Comments After Hours Call 08/02/2023 Encounter Details Date Type Department Care Team (Late st Contact Info) Description 08/02/2023 Telephone Gynecology/Obstetrics [facility] [address] [facility] [place] [address] Vivian Carlton, RN After Hours Call Allergies No known active allergiesdocumented as of this encounter (statuses as of 08/02/2023) Medications Medication Sig Dispensed Refills Start Date [...] as of this encounter (statuses as of 08/02/2023) Active Problems Problem Noted Date Diagnosed Date [...] as of this encounter (statuses as of 08/02/2023) Resolved Problems Problem Noted Date Diagnosed Date [...] as of this encounter (statuses as of 08/02/2023) Immunizations Name Administration Dates Next Due DTaP [...] money to get more. Never true 07/09/2022 [place] Depression Scale Answer Date Recorded [place] Depression Scale Total 3 07/10/2023 The thought [...] encounter Miscellaneous Notes * Telephone Encounter - Vivian Carlton RN - 08/02/2023 3:24 AM EDT This is a nurse triage encounter. If additional action is needed, do not route to nurse triage. Please route encounter to the applicable clinic pool. Patient calling in stating she is having contractions, currently 38 weeks . She plans to deliver at [facility] so I transferred her to the lumber tying machine operator there who connected her to Labor and Delivery. documented in this encounter Plan of Treatment Upcoming Encounters Date Type Department Care Team (Late st Contact Info) Description 08/08/2023 9:00 AM EDT Office Visit Gynecology/Obstetrics Humberto Salazar [address] [place] [address] [place] Gross PA-C [address] [place] [address] [place] [address] [place], Non Stress Tests Peter [address] [place] [address] Health Maintenance Due Date Last Done Comments [...] filedocumented as of this encounter Care Teams Master Rigger Relationship Specialty Start Date End Date Aruna Valero DO [address] [place] [address] [place] [phone] PCP - General Internal Medicine 02/07/16 documented as of this encounter
--- OUTSIDE RECORDS SUMMARY | 2023-08-04 06:30 | External Medical Summary | Summary of Care ---
Author Name Unknown Organization [facility] Address [address] [facility] [place] [address] Phone [phone] Care Team Providers Care Die Cast Die Maker Name Role Phone Aruna Valero Primary Care Provider Reason for Visit * Reason Comments Return Visit Encounter Details Date Type Department Care Team (Latest Contact Info) Description 07/25/2023 10:00 AM EDT Office Visit Gynecology/Obstetric s [facility] [address] [place] [address] Char Jama CRNP [address] [place] [address] [place], Non Stress Tests Peter [address] [place] [address] Obesity, Class II, BMI 35-39.9, isolated (see actual BMI)*; Herpes simplex infection of genitourinary system; Supervision of other normal , antepartum; Excessive growth, antepartum, single or unspecified fetus; renal anomaly, single gestation Allergies No known active allergiesdocumented as of this encounter (statuses as of 07/25/2023) Medications Medication Sig Dispensed Refills Start Date [...] as of this encounter (statuses as of 07/25/2023) Active Problems Problem Noted Date Diagnosed Date Excessive growth, antepartum 07/12/2023 Overview: AC 97% at 35 weeks MFM did not recommend repeat 3 hour gtt, healthy diet/exercise Repeat growth in 3-4 weeks renal anomaly, single gestation 07/12/2023 Overview: R UTD at 35 weeks. M recommended pediatrics be made aware. Uterine size date discrepancy 06/13/19 24 Supervision [...] as of this encounter (statuses as of 07/25/2023) Resolved Problems Problem Noted Date Diagnosed Date [...] as of this encounter (statuses as of 07/25/2023) Immunizations Name Administration Dates Next Due DTaP [...] money to get more. Never true 07/09/2022 [place] Depression Scale Answer Date Recorded [place] Depression Scale Total 3 07/10/2023 The thought [...] Sign Reading Time Taken Comments Blood Pressure 124/76 07/25/2023 9:51 AM EDT Pulse - - Temperature - - Respiratory Rate - - Oxygen Saturation - - Inhaled Oxygen Concentration - - Weight 106.1 kg (234 lb) 07/25/2023 9:51 AM EDT Height 162.6 cm (5' 4") 07/25/2023 9:51 AM EDT Body Mass Index 40.17 07/25/2023 9:51 AM EDT documented in this encounter Progress Notes * Char Jama CRNP - 07/25/2023 10:32 AM EDT 37w Feeling well. Baby is active. No contractions, bleeding, LOF. Taking Valtrex. JAI Bray ASSESSMENT assessment with Non-stress Test completed on 07/25/2023 at 37.3weeks gestation for indication of obesity heart baseline: 140 bpm Variability: Moderate Decelerations: absent Accelerations: present Contractions: None NST start time: 0949 NST stop time: 1014 NST strip reviewed, interpreted, and approved by OB provider, JAI Bray . NST strip stored in clinic storage file documented in this encounter Plan of Treatment Upcoming Encounters Date Type Department Care Team (Late st Contact Info) Description 07/31/2023 1:30 PM EDT Imaging Radiology [facility] [address] [place] [address] 07/31/2023 2:30 PM EDT Office Visit Gynecology/Obstetrics [facility] [address] [place] [address] Cyril Claire MD [address] [place] [address] Mela Salazar Stress Tests [facility] [place] [address] 08/08/2023 9:00 AM EDT Office Visit Gynecology/Obstetrics [facility] [address] [place] [address] Emilia Gross PA-C [address] [facility] [place] [address] Mela Salazar Stress Tests [facility] [address] [facility] [place] [address] Health Maintenance Due Date Last Done Comments [...] gestation documented in this encounter Care Teams Die Cast Die Maker Relationship Specialty Start Date End Date Aruna Valero DO [address] [place] [address] [place] [address] PCP - General Internal Medicine 02/07/16 documented as of this encounter
--- OUTSIDE RECORDS SUMMARY | 2023-08-04 06:30 | External Medical Summary | Summary of Care ---
Author Name Unknown Organization [facility] Address [address] [facility] [place] [address] Phone [phone] Care Team Providers Care Dog License Officer Supervisor Name Role Phone Aruna Valero Primary Care Provider Encounter Details Date Type Department Care Team (Late st Contact Info) Description 08/01/2023 Telephone Gynecology/Obstetrics [facility] [address] [place] [address] Cecy Garcia PA-C [address] [place] [address] Allergies No known active allergiesdocumented as of [...] money to get more. Never true 07/09/2022 [place] Depression Scale Answer Date Recorded [place] Depression Scale Total 3 07/10/2023 The [...] Visit Gynecology/Obstetrics [facility] [address] [place] [address] Emilia Gross PA-C [address] [place] [address] [place] [address] [place], Non Stress Tests Peter [address] [place] [address] Health Maintenance Due Date Last Done Comments [...] filedocumented as of this encounter Care Teams Dog License Officer Supervisor Relationship Specialty Start Date End Date Aruna Valero DO [address] [place] [address] [place] [address] PCP - General Internal Medicine 02/07/16 documented as of this encounter
--- OUTSIDE RECORDS SUMMARY | 2023-08-04 06:31 | External Medical Summary | Summary of Care ---
Author Name Unknown Organization [facility] Address [address] [facility] [place] [address] Phone [phone] Care Team Providers Care Service Station Attendant Name Role Phone Aruna Valero Primary Care Provider [phone] Reason for Visit * Reason Comments Return Visit Encounter Details Date Type Department Care Team (Latest Contact Info) Description 05/29/2023 4:30 PM EST Office Visit Gynecology/Obstetric s [facility] [address] [place] [address] Cecy Garcia PA-C [address] [place] [address] Supervision of other normal , antepartum*; Obesity, Class II, BMI 35-39.9, isolated (see actual BMI); Herpes simplex infection of genitourinary system; Other specified related conditions, third trimester Allergies No known active allergiesdocumented as of this encounter (statuses as of 05/29/2023) Medications Medication Sig Dispensed Refills Start Date End Date Status Vitamin 27-0.8 MG Oral Tablet Take by mouth. 0 Active documented as of this encounter (statuses as of 05/29/2023) Active Problems Problem Noted Date Diagnosed Date Supervision of other normal , antepartu m [...] as of this encounter (statuses as of 05/29/2023) Resolved Problems Problem Noted Date Diagnosed Date [...] as of this encounter (statuses as of 05/29/2023) Immunizations Name Administration Dates Next Due DTaP Dipth/Tet/Acell Pertussis (Infanrix), Peds 12/14/2002,07/05/1998,1997,05/25,1997 H1N1 2009 Influenza, IM 02/01/2009 HPV Vaccine, 4-Valent 02/25/2013 Hepatitis B, 0-19 yrs 1997,1997,10/06/1996 IPV - Polio Virus Vaccine (Inact) 2002,07/05/1998,1997,03/23 [...] Date Recorded PHQ Adult Total Score 0 07/09/2022 Hunger Vital Sign Answer Date Recorded Within the past 12 months, y ou worried that your food would run out before you got the money to buy more. Never true 07/10/19 23 Within the past 12 months, t he food you bought just didn't last and you didn't have money to get more. Never true 07/09/[address] Depression Scale Answer Date Recorded [place] [address] Depression Scale Total 3 05/29/2023 The thought of harming myself has occurred to me . Never 05/29/2023 Estimated Date of Delivery Comme nts Yes [...] Sign Reading Time Taken Comments Blood Pressure 108/60 05/29/2023 4:14 PM EST Pulse - - Temperature - - Respiratory Rate - - Oxygen Saturation - - Inhaled Oxygen Concentration - - Weight 101.6 kg (224 lb) 05/29/2023 4:14 PM EST Height 162.6 cm (5' 4") 05/29/2023 4:14 PM EST Body Mass Index 38.45 05/29/2023 4:14 PM EST documented in this encounter Progress Notes * Cecy Garcia PA-C - 05/29/2023 4:27 PM EST 29w2d Without complaints. Denies VB, LOF, contractions. Pos FM. Growth today: EFQ 1551 g, 65%ile, normal NAYE. Baby is breech. +FHT 150 bpm by sono. Pt asked about breech presentation. Discussed will reassess as progress as baby could change position. Asked about options. Reviewed primary c/s vs ECV if persistent breech presentation at term. Pt states would likely want to try ECV if indicated. Passed 3 hour gtt. RTC in 2 weeks. Cecy Garcia PA-C documented in this encounter Nursing Notes * Nery Blair LPN - 05/29/2023 4:14 PM EST 29w2d Growth US today- 65%, NAYE 18.3cm. Breech. documented in this encounter Plan of Treatment Upcoming Encounters Date Type Department Care Team (Late st Contact Info) Description 06/12/2023 4:30 PM EDT Office Visit Gynecology/Obstetrics [facility] [address] [place] [address] Cecy Garcia PA-C [address] [place] [address] 06/26/2023 4:30 PM EDT Office Visit Gynecology/Obstetrics [facility] [address] [place] [address] Cecy Garcia PA-C [address] [place] [address] 07/10/2023 4:30 PM EDT Office Visit Gynecology/Obstetrics [facility] [address] [place] [address] Cecy Garcia PA-C [address] [place] [address] 07/24/2023 4:30 PM EDT Office Visit Gynecology/Obstetrics [facility] [address] [place] [address] Cecy Garcia PA-C [address] [place] [address] 07/31/2023 2:30 PM EDT Office Visit Gynecology/Obstetrics [facility] [address] [place] [address] Cyril Claire MD [address] [place] [address] [employer], Non Stress Tests [facility] [address] [place] [address] Scheduled Orders Name Type Priority Associated Diagnoses Orde r Schedule US PREG FOLLOW-UP EACH FETUS Medical Imaging Routine Obesity, Class II, BMI 35-39.9, isolated (see actual BMI) Other specified related conditions, third trimester Expected: 06/27/2023, Expires: 06/26/2024 Health Maintenance Due Date Last Done Comments GARDASIL-HPV IMMUNIZATION SERIES (2 - 3-dose series) 03/25/2013 02/25/2013 COVID-19 Vaccine (2022-24 season) 2022 Influenza Vaccine (FLU shot) (#1) 2022 12/15/2018, 01/14/2017, 02/07/2016, Additional history exists Depression Screening 07/10/2023 07/09/2022 Pap Smear 12/30/2023 12/29/2020, 05/06/2018 DTaP,Tdap,and Td Vaccines (10 - Td or [...] as of this encounter Visit Diagnoses Diagnosis Supervision of other normal , antepartum- Primary Obesity, Class II, BMI 35-39.9, isolated (see actual BMI) Morbid obesity Herpes simplex infection of genitourinary system Other specified related conditions, third trimester documented in this encounter Care Teams Service Station Attendant Relationship Specialty Start Date End Date Aruna Valero DO [address] [place] [address] [place] [id number] PCP - General Internal Medicine 02/07/16 documented as of this encounter
--- OUTSIDE RECORDS SUMMARY | 2023-08-04 06:31 | External Medical Summary ---
Author Name Unknown Address Unknown Organization [id number]:[facility] [place] [address] [place] [id number] Laboratory Report Ordering Provider Test Date Status CHELSEYBACKER 05/20/2023 09:28:01 Final Observation Date Value Abnormality Reference (Units ) Status Glucose, 2-hr post glucose challenge 05/20/2023 09:28:01 114 70-154 (mg/dL) Final Performing Location [facility] [place] [address] [place] [address]
--- OUTSIDE RECORDS SUMMARY | 2023-08-04 06:31 | External Medical Summary | Summary of Care ---
Author Name Unknown Organization [facility] Address [address] [place] [place] [address] Phone [phone] Care Team Providers Care Final Assembler Boat Name Role Phone Aruna Valero Primary Care Provider Reason for Visit * Reason Onset Date Comments Test Results 07/10/2023 Unexpected or In determinate Result Encounter Details Date Type Department Care Team (Late st Contact Info) Description 07/10/2023 Telephone Gynecology/Obstetrics [facility] [address] [place] [address] Cecy Garcia PA-C [address] [place] [address] Test Results (Unexpected or Indeterminate ... Allergies No known active allergiesdocumented as of this encounter (statuses as of 07/11/2023) Medications Medication Sig Dispensed Refills Start Date End Date Status Vitamin 27-0.8 MG Oral Tablet Take by mouth. 0 Active documented as of this encounter (statuses as of 07/11/2023) Active Problems Problem Noted Date Diagnosed Date Uterine size date discrepancy 06/13/19 24 Supervision [...] as of this encounter (statuses as of 07/11/2023) Resolved Problems Problem Noted Date Diagnosed Date [...] as of this encounter (statuses as of 07/11/2023) Immunizations Name Administration Dates Next Due DTaP [...] money to get more. Never true 07/09/2022 [place] Depression Scale Answer Date Recorded [place] Depression Scale Total 3 07/10/2023 The thought [...] encounter Miscellaneous Notes * Telephone Encounter - Cammie Diane LPN - 07/11/2023 7:28 AM EDT Please see t/e from radiologist * Telephone Encounter - Andree Covarrubias OSA - 07/10/2023 4:14 PM EDT Hello- The radiologist discovered an unexpected or indeterminate finding on Laura Thompson ([id number]) and asks that you review the following report. Study Type:US PREG FOLLOW-UP EACH FETUS Date of Study: 07/10/2023 IMPRESSION 1. Limited ultrasound as detailed above. 2. Mildly dilated bilateral renal pelvis, right greater than left, new since the prior exam. Continued surveillance is suggested. Please respond to this encounter to acknowledge receipt of this message and take responsibility to ensure this report is reviewed. Thank you, CHRISTINE Walker Client Service Rep [facility] [place] documented in this encounter Plan of Treatment Upcoming Encounters Date Type Department Care Team (Late st Contact Info) Description 07/16/2023 8:45 AM EDT Office Visit Gynecology/Obstetrics [facility] [address] [place] [address] Joaquín Alvares, [facility] [address] [place] [address] 07/24/2023 4:30 PM EDT Office Visit [facility] [address] [place] [address] Cecy Garcia PA-C [address] [place] [address] 07/31/2023 2:30 PM EDT Office Visit Gynecology/Obstetrics [facility] [address] [place] [address] Cyril Claire MD [address] [place] [address] [place], Non Stress Tests Peter [address] [place] [address] Health Maintenance Due Date Last Done Comments [...] filedocumented as of this encounter Care Teams Final Assembler Boat Relationship Specialty Start Date End Date Aruna Valero DO [address] [place] [address] [place] [address] PCP - General Internal Medicine 02/07/16 documented as of this encounter
--- OUTSIDE RECORDS SUMMARY | 2023-08-04 06:31 | External Medical Summary | Summary of Care ---
Author Name Unknown Organization [facility] Address [address] [place] [place] [address] Phone [phone] Care Team Providers Care Display Fabrication Supervisor Name Role Phone Aruna Valero Primary Care Provider Encounter Details Date Type Department Care Team (Late st Contact Info) Description 05/30/2023 Telephone Gynecology/Obstetrics [facility] [address] [facility] [place] [address] Esperanza Ray, [place] [address] [facility] [place] [address] Allergies No known active allergiesdocumented as of this encounter (statuses as of 05/30/2023) Medications Medication Sig Dispensed Refills Start Date End Date Status Vitamin 27-0.8 MG Oral Tablet Take by mouth. 0 Active documented as of this encounter (statuses as of 05/30/2023) Active Problems Problem Noted Date Diagnosed Date [...] as of this encounter (statuses as of 05/30/2023) Resolved Problems Problem Noted Date Diagnosed Date [...] as of this encounter (statuses as of 05/30/2023) Immunizations Name Administration Dates Next Due DTaP Dipth/Tet/Acell Pertussis (Infanrix), Peds 12/14/2002,07/05/1998,1997,05/25,1997 H1N1 2009 Influenza, IM 02/01/2009 HPV Vaccine, 4-Valent 02/25/2013 Hepatitis B, 0-19 yrs 1997,1997,10/0 06/1996 IPV - Polio Virus Vaccine (Inact) 2002,07/05/1998,1997,03/23 [...] money to get more. Never true 07/09/2022 [place] Depression Scale Answer Date Recorded [place] Depression Scale Total 3 05/29/2023 The thought [...] encounter Miscellaneous Notes * Telephone Encounter - Kathy Mendez LPN - 05/30/2023 11:54 AM EST ----- Message from Esperanza Ray CNM sent at 05/30/2023 11:25 AM EST ----- Please let patient know her ultrasound showed normal growth, normal fluid level, and baby was in the breech presentation. I recommend spinning babies exercises (available online) for optimal position. She will need a repeat ultrasound for growth in 4 weeks. Thanks! Esperanza Ray CNM documented in this encounter Plan of Treatment Upcoming Encounters Date Type Department Care Team (Late st Contact Info) Description 06/12/2023 4:30 PM EDT Office Visit Gynecology/Obstetrics [facility] [address] [place] [address] Ceyc Garcia PA-C [address] [place] [address] 06/26/2023 4:30 PM EDT Office Visit Gynecology/Obstetrics [facility] [address] [place] [address] Cecy Garcia PA-C [address] [place] [address] 07/10/2023 2:30 PM EDT Imaging Radiology [facility] [address] [place] [address] 07/10/2023 4:30 PM EDT Office Visit Gynecology/Obstetrics [facility] [address] [place] [address] Cecy Garcia PA-C [address] [place] [address] 07/24/2023 4:30 PM EDT Office Visit Gynecology/Obstetrics [facility] [address] [place] [address] Cecy Garcia PA-C [address] [place] [address] 07/31/2023 2:30 PM EDT Office Visit Gynecology/Obstetrics [facility] [address] [place] [address] Cyril Claire MD [address] [place] [address] [place], Non Stress Tests Peter [address] [place] [address] Health Maintenance Due Date Last Done Comments GARDASIL-HPV IMMUNIZATION SERIES (2 - 3-dose series) 03/25/2013 02/25/2013 COVID-19 Vaccine ( season) 2022 Influenza Vaccine (FLU shot) (#1) [...] filedocumented as of this encounter Care Teams Display Fabrication Supervisor Relationship Specialty Start Date End Date Aruna Valero DO [address] [place] [address] [place] [address] PCP - General Internal Medicine 02/07/16 documented as of this encounter
--- OUTSIDE RECORDS SUMMARY | 2023-08-04 06:31 | External Medical Summary ---
Author Name Unknown Address Unknown Organization K01[place] [place] [address] [facility] [address] [place] [address] Laboratory Report Ordering Provider Test Date Status CATARINO AMBROSE 07/17/2023 09:41:13 Final Observation Date Value Abnormality Reference (Units ) Status Streptococcus agalactiae DNA [Presence] in Specimen by DOLORES with probe detection 07/17/2023 09:41:13 Negative Negative Final No Group B Streptococcus det ected by culture-enhanced PCR (amplified probe).
The collection of vaginal/rectal swab specimen combinations (FDA approved specimen type) is optimal for the detection of Group B Streptococcus. Single source collection (vaginal only or rectal only) or alternate specimen sources may lead to false negative results. Performing Location [facility] [place] [address] [place] [address]
--- OUTSIDE RECORDS SUMMARY | 2023-08-04 06:31 | External Medical Summary ---
Author Name Unknown Address Unknown Organization [facility] [facility] [address] [place] [address] Laboratory Report Ordering Provider Test Date Status ARNOL,CATARINO 07/17/2023 09:41:13 Final Observation Date Value Abnormality Reference (Units ) Status Premature Rupture Membrane risk 07/17/2023 09:41:13 Negative Negative Final Performing Location [facility]ORY [facility] [place] [address] [place] [address]
--- OUTSIDE RECORDS SUMMARY | 2023-08-04 06:31 | External Medical Summary ---
Author Name Unknown Address Unknown Organization K0G:[facility] [place] [address] [place] [address] Laboratory Report Ordering Provider Test Date Status STEPHANIE BARBOSA 05/20/2023 08:33:30 Final Observation Date Value Abnormality Reference (Units ) Status Glucose [Mass/volume] in Serum or Plasma --1 hour post dose glucose 05/20/2023 08:33:30 140 70-179 (mg/dL) Final Performing Location [facility] [place] [place] [address] [place] [address]
--- OUTSIDE RECORDS SUMMARY | 2023-08-04 06:31 | External Medical Summary | Summary of Care ---
Author Name Unknown Organization [facility] Address [address] [facility] [place] [address] Phone [phone] Care Team Providers Care Industrial Furnace Fabricator Name Role Phone Aruna Valero Primary Care Provider Reason for Visit * Reason Comments Return Visit Encounter Details Date Type Department Care Team (Latest Contact Info) Description 07/10/2023 4:30 PM EDT Office Visit Gynecology/Obstetric s [facility] [address] [place] [address] Cecy Garcia PA-C [address] [place] [address] Supervision of other normal , antepartum*; Obesity, Class II, BMI 35-39.9, isolated (see actual BMI); Herpes simplex infection of genitourinary system Allergies No known active allergiesdocumented as of this encounter (statuses as of 07/10/2023) Medications Medication Sig Dispensed Refills Start Date [...] as of this encounter (statuses as of 07/10/2023) Active Problems Problem Noted Date Diagnosed Date [...] as of this encounter (statuses as of 07/10/2023) Resolved Problems Problem Noted Date Diagnosed Date [...] as of this encounter (statuses as of 07/10/2023) Immunizations Name Administration Dates Next Due DTaP [...] money to get more. Never true 07/09/2022 [place] Depression Scale Answer Date Recorded [place] Depression Scale Total 3 07/10/2023 The thought [...] Sign Reading Time Taken Comments Blood Pressure 124/84 07/10/2023 3:35 PM EDT Pulse - - Temperature - - Respiratory Rate - - Oxygen Saturation - - Inhaled Oxygen Concentration - - Weight 103.4 kg (228 lb) 07/10/2023 3:35 PM EDT Height 162.6 cm (5' 4") 07/10/2023 3:35 PM EDT Body Mass Index 39.14 07/10/2023 3:35 PM EDT documented in this encounter Progress Notes * Cecy Garcia PA-C - 07/10/2023 4:21 PM EDT 35w2d Becoming more uncomfortable. Hip and low back pain. Has tried belly support band and support pillowat night. Not overly helpful. 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 Asking about early leave in . Discussed FMLA but this may cut in to time post . She asked about short term disability. Discussed there would be no indication at this time for leave. Reviewed comfort measures. Growth today: final report pending. 3007gm, FHR 150, NAYE 19.3cm. Vertex. 79%ile. Reviewed GBS with next visit Rx for HSV suppression sent to pharmacy to start at 36 weeks RTC in 1 week Cecy Garcia PA-C documented in this encounter Nursing Notes * Nery Blair LPN - 07/10/2023 3:36 PM EDT 35w2d Growth US today- 3007gm, FHR 150, NAYE 19.3cm. documented in this encounter Plan of Treatment Upcoming Encounters Date Type Department Care Team (Late st Contact Info) Description 07/16/2023 8:45 AM EDT Office Visit Gynecology/Obstetrics [facility] [address] [place] [address] Joaquín Alvares, [place] [address] [place] [address] 07/24/2023 4:30 PM EDT Office Visit Gynecology/Obstetrics [facility] [address] [place] [address] Cecy Garcia PA-C [address] [place] [address] 07/31/2023 2:30 PM EDT Office Visit Gynecology/Obstetrics [facility] [address] [place] [address] Cyril Claire MD [address] [place] [address] Mela Salazar Stress Tests [facility] [address] [place] [address] Health Maintenance Due Date Last Done Comments [...] obesity Herpes simplex infection of genitourinary system documented in this encounter Care Teams Industrial Furnace Fabricator Relationship Specialty Start Date End Date Aruna Valero DO [address] [place] [address] [place] [phone] PCP - General Internal Medicine 02/07/16 documented as of this encounter
--- OUTSIDE RECORDS SUMMARY | 2023-08-04 06:31 | External Medical Summary | Summary of Care ---
Author Name Unknown Organization [facility] Address [address] [facility] [place] [address] Phone [phone] Care Team Providers Care Patient Care Technician Name Role Phone Aruna Valero Primary Care Provider [phone] Reason for Visit * Reason Comments Return Visit Encounter Details Date Type Department Care Team (Latest Contact Info) Description 05/16/2023 8:15 AM EST Office Visit Gynecology/Obstetric s Garciameaghan Salazar [address] [place] [address] Char Jama CRNP [address] [place] [address] Encounter for supervision of other normal in third trimester*; Obesity, Class II, BMI 35-39.9, isolated (see actual BMI); Herpes simplex infection of genitourinary system; Need for prophylactic vaccination with combined lhdddoarwd-btmsjgh-wmq tussis (DTP) vaccine Allergies No known active allergiesdocumented as of this encounter (statuses as of 05/16/2023) Medications Medication Sig Dispensed Refills Start Date End Date Status Vitamin 27-0.8 MG Oral Tablet Take by mouth. 0 Active documented as of this encounter (statuses as of 05/16/2023) Active Problems Problem Noted Date Diagnosed Date [...] as of this encounter (statuses as of 05/16/2023) Resolved Problems Problem Noted Date Diagnosed Date [...] as of this encounter (statuses as of 05/16/2023) Immunizations Name Administration Dates Next Due DTaP [...] money to get more. Never true 07/09/2022 [place] Depression Scale Answer Date Recorded [place] Depression Scale Total 3 01/08/2023 The thought of harming myself has occurred to me . Never 01/08/2023 Estimated Date of Delivery Comme nts Yes [...] Sign Reading Time Taken Comments Blood Pressure 114/64 05/16/2023 8:06 AM EST Pulse - - Temperature - - Respiratory Rate - - Oxygen Saturation - - Inhaled Oxygen Concentration - - Weight 100.2 kg (221 lb) 05/16/2023 8:06 AM EST Height 162.6 cm (5' 4") 05/16/2023 8:06 AM EST Body Mass Index 37.93 05/16/2023 8:06 AM EST documented in this encounter Progress Notes * Char Jama CRNP - 05/16/2023 8:15 AM EST 27w3d Having some normal aches and pains of , nothing concerning. Baby is very active. No contractions, bleeding, or LOF. Glucola, TDAP today. Has growth u/s scheduled in 2 weeks. JAI Bray * Cammie Diane LPN - 05/16/2023 8:07 AM EST 27w3d Doing glucola Would like tdap documented in this encounter Nursing Notes * Cammie Diane LPN - 05/16/2023 8:18 AM EST Patient here for tdap injection. Patient doing well no complaints. Injection given IM as ordered. Patient tolerated well. Patient to follow up as directed. Patient instructed to call if any complications. Patient verbalized understanding of instructions given and her follow up appt for 2 weeks Injection site: Left Deltoid Medication Source: Dispensed stock medication documented in this encounter Plan of Treatment Upcoming Encounters Date Type Department Care Team (Late st Contact Info) Description 05/16/2023 8:40 AM EST Laboratory Laboratory, [facility] [address] [place] [address] [facility] [address] [place] [address] Arrived 05/29/2023 3:00 PM EST Imaging Radiology [facility] 2nd Floor, [place] [address] [place] [address] 05/29/2023 4:30 PM EST Office Visit Gynecology/Obstetrics [facility] [address] [place] [address] Cecy Garcia PA-C [address] [place] [address] 06/12/2023 4:30 PM EDT Office Visit Gynecology/Obstetrics [facility] [address] [place] [address] Cecy Garcia PA-C [address] [place] [address] 06/26/2023 4:30 PM EDT Office Visit Gynecology/Obstetrics [facility] [address] [place] [address] Cecy Garcia PA-C [address] [place] [address] 07/10/2023 4:30 PM EDT Office Visit Gynecology/Obstetrics [facility] [address] [place] [address] Cecy Garcia PA-C [address] [place] [address] 07/24/2023 4:30 PM EDT Office Visit Gynecology/Obstetrics Humberto Salazar [address] [place] [address] Cecy Garcia PA-C [address] [place] [address] 07/31/2023 2:30 PM EDT Office Visit Gynecology/Obstetrics Humberto Salazar [address] [place] [address] Cyril Claire MD [address] [place] [address] Mela Salazar Stress [facility] [address] [place] [address] 08/07/2023 2:30 PM EDT Office Visit Gynecology/Obstetrics Humberto Salazar [address] [place] [address] Char Jama CRNP [address] [place] [address] Mela Salazar Stress Tests [facility] [address] [place] [address] Health Maintenance Due Date Last Done Comments COVID-19 Vaccine (#1) 1997 GARDASIL-HPV IMMUNIZATION SERIES (2 - 3-dose series) 03/25/2013 02/25/2013 Influenza Vaccine (FLU shot) (#1) 2022 12/15/2018, [...] as of this encounter Visit Diagnoses Diagnosis Encounter for supervision of other normal in third trimester- Primary Obesity, Class II, BMI 35-39.9, isolated (see actual BMI) Morbid obesity Herpes simplex infection of genitourinary system Need for prophylactic vaccination with combined wicjcobbae-eblapne-ezqjclyso (DTP) vaccine documented in this encounter Care Teams Patient Care Technician Relationship Specialty Start Date End Date Aruna Valero DO [address] [place] [address] [place] [id number] PCP - General Internal Medicine 02/07/16 documented as of this encounter
--- OUTSIDE RECORDS SUMMARY | 2023-08-04 06:31 | External Medical Summary ---
Author Name Unknown Address Unknown Organization [facility] [address] [place] [address] Laboratory Report Ordering Provider Test Date Status STEPHANIE BARBOSA 05/20/2023 10:26:58 Final Observation Date Value Abnormality Reference (Units ) Status Glucose [Mass/volume] in Serum or Plasma --3 hours post dose glucose 05/20/2023 10:26:58 105 70-139 (mg/dL) Final Performing Location [facility] [address] [place] [address]
--- OUTSIDE RECORDS SUMMARY | 2023-08-04 06:31 | External Medical Summary | Summary of Care ---
Author Name Unknown Organization [facility] Address [address] [facility] [place] [address] Phone [phone] Care Team Providers Care Hangar Attendant Name Role Phone Aruna Valero Primary Care Provider Reason for Visit * Reason Comments Return Visit Encounter Details Date Type Department Care Team (Late st Contact Info) Description 06/12/2023 4:15 PM EDT Office Visit Gynecology/Obstetri [facility] [address] [facility] [place] [address] Fatuma Masters MD [address] [place] [address] Obesity, Class II, BMI 35-39.9, isolated (see actual BMI)*; Herpes simplex infection of genitourinary system; Supervision of other normal , antepartum; Uterine size date discrepancy Allergies No known active allergiesdocumented as of this encounter (statuses as of 06/13/2023) Medications Medication Sig Dispensed Refills Start Date End Date Status Vitamin 27-0.8 MG Oral Tablet Take by mouth. 0 Active documented as of this encounter (statuses as of 06/13/2023) Active Problems Problem Noted Date Diagnosed Date [...] as of this encounter (statuses as of 06/13/2023) Resolved Problems Problem Noted Date Diagnosed Date [...] as of this encounter (statuses as of 06/13/2023) Immunizations Name Administration Dates Next Due DTaP [...] money to get more. Never true 07/09/2022 [place] Depression Scale Answer Date Recorded [place] Depression Scale Total 3 05/29/2023 The thought [...] Sign Reading Time Taken Comments Blood Pressure 118/64 06/12/2023 4:28 PM EDT Pulse - - Temperature - - Respiratory Rate - - Oxygen Saturation - - Inhaled Oxygen Concentration - - Weight 103 kg (227 lb) 06/12/2023 4:28 PM EDT Height - - Body Mass Index 38.96 05/29/2023 4:14 PM EST documented in this encounter Progress Notes * Kathy Mendez LPN - 06/12/2023 4:28 PM EDT Pt is currently 31w2d with an Estimated Date of Delivery: 08/12/23 - * Fatuma Masters MD - 06/12/2023 4:15 PM EDT Patient is 28 year old at 31 2/7 weeks who presents for AIXA visit Denies contractions, leaking of fluid, or vaginal bleeding. Noted good movement Denies headache, blurry vision, RUQ or epigastric pain. Interested in a version if baby doesn't flip 3hr wnl Problem list reviewed BP 118/64 | Wt 103 kg (227 lb) | LMP 11/05/2022 (Exact Date) | BMI 38.96 kg/m | BSA 2.16 m FH: 37 FHT: 145 Breech on exam Plan: Labor and preeclampsia warnings reviewed Growth scheduled for 07/09 Valtrex at 36 weeks NST at 37 weeks ECV at [facility] if breech at 37 weeks Spinning babies RTC 2 weeks V Sonam GERARD PhD documented in this encounter Plan of Treatment Upcoming Encounters Date Type Department Care Team (Late st Contact Info) Description 06/26/2023 4:30 PM EDT Office Visit Gynecology/Obstetrics [facility] [address] [place] [address] Cecy Garcia PA-C [address] [place] [address] 07/10/2023 2:30 PM EDT Imaging Radiology [facility] [address] [place] [address] 07/10/2023 4:30 PM EDT Office Visit Gynecology/Obstetrics [facility] [address] [place] [address] Cecy Garcia PA-C [address] [place] [address] 07/24/2023 4:30 PM EDT Office Visit Gynecology/Obstetrics [facility] [address] [place] [address] Cecy Garcia PA-C [address] [place] [address] 07/31/2023 2:30 PM EDT Office Visit Gynecology/Obstetrics [facility] [address] [place] [address] Cyril Claire MD [address] [place] [address] Salazar Non Stress Tests [facility] [address] [place] [address] Health Maintenance Due Date Last Done Comments [...] system Supervision of other normal , antepartum Uterine size date discrepancy Uterine size date discrepancy, antepartum condition or complication documented in this encounter Care Teams Hangar Attendant Relationship Specialty Start Date End Date Aruna Valero DO [address] [place] [address] [place] [id number] PCP - General Internal Medicine 02/07/16 documented as of this encounter"
--- OUTSIDE RECORDS SUMMARY | 2023-08-04 06:31 | External Medical Summary | Summary of Care ---
Author Name Unknown Organization [facility] Address [address] [facility] [place] [address] Phone [phone] Care Team Providers Care Furniture Mover Helper Name Role Phone Aruna Valero Primary Care Provider Reason for Visit * Reason Onset Date Comments Test Results 05/16/2023 Encounter Details Date Type Department Care Team (Late st Contact Info) Description 05/16/2023 Telephone Gynecology/Obstetrics [facility] [address] [place] [address] BackerEcho CRNP [address] [place] [address] Test Results Allergies No known active allergiesdocumented as of this encounter (statuses as of 05/17/2023) Medications Medication Sig Dispensed Refills Start Date End Date Status Vitamin 27-0.8 MG Oral Tablet Take by mouth. 0 Active documented as of this encounter (statuses as of 05/17/2023) Active Problems Problem Noted Date Diagnosed Date [...] as of this encounter (statuses as of 05/17/2023) Resolved Problems Problem Noted Date Diagnosed Date [...] as of this encounter (statuses as of 05/17/2023) Immunizations Name Administration Dates Next Due DTaP [...] money to get more. Never true 07/09/2022 [place] Depression Scale Answer Date Recorded [place] Depression Scale Total 3 01/08/2023 The thought [...] encounter Miscellaneous Notes * Telephone Encounter - Augustina Reynolds MED ASSIST - 05/17/2023 9:26 AM EST Appt scheduled, pt aware * Telephone Encounter - Ariana Starr RN - 05/16/2023 3:24 PM EST Patient called and made aware of below. Patient given instructions for fasting, atleast 8-10 hrs, must schedule this test and must stay in building for entire test, advised to bring something with toeat for AFTER the test. Patient verbalized understanding. Please contact patient to schedule. Thank you. * Telephone Encounter - Echo Feliz CRNP - 05/16/2023 2:49 PM EST Elevated 1 hr glucose, will need to complete 3 hr testing. Please notify pt and have her schedule, thanks. JAI Corrales documented in this encounter Plan of Treatment Upcoming Encounters Date Type Department Care Team (Late st Contact Info) Description 05/20/2023 7:20 AM EST Laboratory Laboratory, [facility] [address] [facility] [place] [id number] [facility] [place] [address] 05/29/2023 3:00 PM EST Imaging Radiology [facility] 2nd [facility] [place] [address] [place] [address] 05/29/2023 4:30 PM EST Office Visit Gynecology/Obstetrics [address] [place] [address] Cecy Garcia PA-C [address] [place] [address] 06/12/2023 4:30 PM EDT Office Visit Gynecology/Obstetrics [facility] [address] [place] [address] Cecy Garcia PA-C [address] [place] [address] 06/26/2023 4:30 PM EDT Office Visit Gynecology/Obstetrics [facility] [address] [place] [address] Cecy Garcia PA-C [address] [place] [address] 07/10/2023 4:30 PM EDT Office Visit Gynecology/Obstetrics [facility] [address] [place] [address] Cecy Garcia PA-C [address] [place] [address] 07/24/2023 4:30 PM EDT Office Visit Gynecology/Obstetrics [facility] [address] [place] [address] Cecy Garcia PA-C [address] [place] [address] 07/31/2023 2:30 PM EDT Office Visit Gynecology/Obstetrics [facility] [address] [place] [address] Cyril Claire MD [address] [place] [address] [facility] Non Stress Tests [facility] [address] [place] [address] 08/07/2023 2:30 PM EDT Office Visit Gynecology/Obstetrics Humberto Salazar [address] [place] [address] Char Jama CRNP [address] [place] [address] [place], Non Stress Tests [facility] [address] [place] [address] Scheduled Orders Name Type Priority Associated Diagnoses Orde r Schedule GESTATIONAL GLUCOSE TOLERANCE, 3 HOUR Lab Routine Abnormal glucose tolerance in mother complicating Expected: 05/16/2023 (Approximate), Expires: 05/16/2024 Health Maintenance Due Date Last Done Comments [...] as of this encounter Visit Diagnoses Diagnosis Abnormal glucose tolerance in mother complicating - Primary Abnormal maternal glucose tolerance, complicating , childbirth, or the puerperium, unspecified as to episode of care documented in this encounter Care Teams Furniture Mover Helper Relationship Specialty Start Date End Date Aruna Valero DO [address] [place] [address] [place] [phone] PCP - General Internal Medicine 02/07/16 documented as of this encounter
--- OUTSIDE RECORDS SUMMARY | 2023-08-04 06:31 | External Medical Summary | Summary of Care ---
Author Name Unknown Organization [facility] Address [address] [facility] [place] [address] Phone [phone] Care Team Providers Care Info Analyst Name Role Phone Aruna Valero Primary Care Provider Encounter Details Date Type Department Care Team (Late st Contact Info) Description 06/26/2023 Telephone Gynecology/Obstetrics [facility] [address] [facility] [place] [address] Fatuma Masters MD [address] [facility] [place] [address] Allergies No known active allergiesdocumented as of this encounter (statuses as of 06/26/2023) Medications Medication Sig Dispensed Refills Start Date End Date Status Vitamin 27-0.8 MG Oral Tablet Take by mouth. 0 Active documented as of this encounter (statuses as of 06/26/2023) Active Problems Problem Noted Date Diagnosed Date [...] as of this encounter (statuses as of 06/26/2023) Resolved Problems Problem Noted Date Diagnosed Date [...] as of this encounter (statuses as of 06/26/2023) Immunizations Name Administration Dates Next Due DTaP [...] money to get more. Never true 07/09/2022 [place] Depression Scale Answer Date Recorded [place] Depression Scale Total 3 05/29/2023 The thought [...] encounter Miscellaneous Notes * Telephone Encounter - Ariana Starr RN - 06/26/2023 1:[address] Masters's message: Agree-most likely blood pressure wasn't taken correctly. Patient to be seen today in the office andshould keep that visit Thanks Patient called and made aware to keep scheduled appt. She verbalized understanding to all. * Telephone Encounter - Ariana Starr RN - 06/26/2023 12:46 PM EDT Patient calling in with concerns of elevated blood pressure. 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 No history of HTN, first elevated reading. Patient denies CORREA but reports feeling "foggy" at times. No dizziness or weakness. No abd pain, no swelling. Patient denies leaking of fluid/Vaginal bleeding or contractions +FM. Reports she probably has not drank enough water today. Has appointment in office today at 4:30. Advised to keep this AIXA appt and to push fluids over the next couple hours. Please advise/ review if any additional recommendations. documented in this encounter Plan of Treatment Upcoming Encounters Date Type Department Care Team (Late st Contact Info) Description 06/26/2023 4:30 PM EDT Office Visit Gynecology/Obstetrics [facility] [address] [place] [address] Cecy Garcia PA-C [address] [place] [address] 07/10/2023 2:30 PM EDT Imaging Radiology [facility] [address] [place] [address] 07/10/2023 4:30 PM EDT Office Visit Gynecology/Obstetrics [facility] [address] [place] [address] Cecy Garcia PA-C [address] [place] [address] 07/24/2023 4:30 PM EDT Office Visit Gynecology/Obstetrics [facility] [address] [place] [address] Cecy Garcia PA-C [address] [place] [address] 07/31/2023 2:30 PM EDT Office Visit Gynecology/Obstetrics [facility] [address] [place] [address] Cyril Claire MD [address] [place] [address] Mela Salazar Stress Tests [facility] [address] [place] [address] Health Maintenance Due Date Last Done Comments GARDASIL-HPV IMMUNIZATION SERIES (2 - 3-dose series) 03/25/2013 02/25/2013 COVID-19 Vaccine (2022- season) 2022 Influenza Vaccine (FLU shot) (#1) [...] filedocumented as of this encounter Care Teams Info Analyst Relationship Specialty Start Date End Date Aruna Valero DO [address] [place] [address] [place] [phone] PCP - General Internal Medicine 02/07/16 documented as of this encounter
--- OUTSIDE RECORDS SUMMARY | 2023-08-04 06:31 | External Medical Summary | Summary of Care ---
Author Name Unknown Organization [facility] Address [address] [facility] [place] [address] Phone [phone] Care Team Providers Care Beam Sealer Name Role Phone Aruna Valero Primary Care Provider Reason for Visit * Reason Comments Outpatient Testing Encounter Details Date Type Department Care Team (Late st Contact Info) Description 05/20/2023 7:20 AM EST Laboratory Laboratory, [facility] [phone] [facility] 132 [place] [address] Abnormal glucose tolerance in mother complicating Allergies No known active allergiesdocumented as of this encounter (statuses as of 05/20/2023) Medications Medication Sig Dispensed Refills Start Date End Date Status Vitamin 27-0.8 MG Oral Tablet Take by mouth. 0 Active documented as of this encounter (statuses as of 05/20/2023) Active Problems Problem Noted Date Diagnosed Date [...] as of this encounter (statuses as of 05/20/2023) Resolved Problems Problem Noted Date Diagnosed Date [...] as of this encounter (statuses as of 05/20/2023) Immunizations Name Administration Dates Next Due DTaP [...] money to get more. Never true 07/09/2022 [place] Depression Scale Answer Date Recorded [place] Depression Scale Total 3 01/08/2023 The thought [...] on file documented as of this encounter Plan of Treatment Upcoming Encounters Date Type Department Care Team (Late st Contact Info) Description 05/29/2023 3:00 PM EST Imaging Radiology [facility] 2nd [facility] [place] [address] [place] [address] 05/29/2023 4:30 PM EST Office Visit Gynecology/Obstetrics [facility] [address] [place] [address] Cecy Garcia PA-C [address] [place] [address] 06/12/2023 4:30 PM EDT Office Visit Gynecology/Obstetrics [facility] [address] [place] [address] Cecy Garcia PA-C [address] [place] [address] 06/26/2023 4:30 PM EDT Office Visit Gynecology/Obstetrics [facility] [address] [place] [address] Cecy Garcia PA-C [address] [place] [address] 07/10/2023 4:30 PM EDT Office Visit Gynecology/Obstetrics [facility] [address] [place] [address] Cecy Garcia PA-C [address] [place] [address] 07/24/2023 4:30 PM EDT Office Visit Gynecology/Obstetrics [facility] [address] [place] [address] Cecy Garcia PA-C [address] [place] [address] 07/31/2023 2:30 PM EDT Office Visit Gynecology/Obstetrics [facility] [address] [place] [address] Cyril Claire MD [address] [place] [address] Salazar, Non Stress Tests Peter [address] [place] [address] 08/07/2023 2:30 PM EDT Office Visit Gynecology/Obstetrics [facility] [address] [place] [address] Char Jama CRNP [address] [place] [address] Salazar, Non Stress Tests Peter [address] [place] [address] Pending Results Name Type Priority Associated Diagnoses Date /Time GESTATIONAL GLUCOSE TOLERANCE, 3 HOUR Lab Routine Abnormal glucose tolerance in mother complicating 05/20/2023 7:31 AM EST 100-G GESTATIONAL GLUCOSE, 3 HOUR Lab Routine Abnormal glucose tolerance in mother complicating 05/20/2023 10:26 AM EST Health Maintenance Due Date Last Done Comments [...] Not on filedocumented as of this encounter Procedures Procedure Name Priority Date/Time Associated Diagnosis Comments 100-G GESTATIONAL GLUCOSE, 2 HOUR Routine 05/20/2023 9:28 AM EST Abnormal glucose tolerance in mother complicating 100-G GESTATIONAL GLUCOSE, 1 HOUR Routine 05/20/2023 8:33 AM EST Abnormal glucose tolerance in mother complicating 100-G GESTATIONAL GLUCOSE, FASTING Routine 05/20/2023 7:31 AM EST Abnormal glucose tolerance in mother complicating documented in this encounter Results * 100-G GESTATIONAL GLUCOSE, 2 HOUR (05/20/2023 9:28 AM EST) 100-g Gestational Glucose, 2 Hour 114 70 - 154 mg/dL 05/20/2023 10:21 AM EST [facility] [place] [facility]-10 Blood Venous blood specimen / Unknown Venipuncture / Unknown 05/20/2023 9:28 AM EST 05/20/2023 9:28 AM EST Echo Winters Backer JAI LAB BLOOD O RDERABLES [facility] [place] 57-10 132 [facility] [place] [address] * 100-G GESTATIONAL GLUCOSE, 1 HOUR (05/20/2023 8:33 AM EST) 100-g Gestational Glucose, 1 Hour 140 70 - 179 mg/dL 05/20/2023 10:02 AM EST [facility] [place] 57-10 Blood Venous blood specimen / Unknown Venipuncture / Unknown 05/20/2023 8:33 AM EST 05/20/2023 8:33 AM EST Echo Singh [facility] B[facility] RDER[facility]LES [facility] [place] 57-10 [address] [place] [address] * 100-G GESTATIONAL GLUCOSE, FASTING (05/20/2023 7:31 AM EST) [facility] 100-g Gestational Glucose, Fasting 87 70 - 94 mg/dL 05/20/2023 9:38 AM EST LAB[facility]ORY [facility] [place] 57-10 Blood Venous blood specimen / Unknown Venipuncture / Unknown 05/20/2023 7:31 AM EST 05/20/2023 7:31 AM EST Narrative LAB[facility]ATORY [facility] [place] 57-10 - 05/20/2023 9:38 AM EST Based on ACOG guideline, gestational diabetes mellitus is diagnosed when any of the following is met: Fasting is greater than or equal to 95 mg/dL 1 hour is greater than or equal to 180 mg/dL 2 hour is greater than or equal to 155 mg/dL 3 hour is greater than or equal to 140 mg/dL Echo Singh [facility] B[facility] [place] 57[address]10 [address] [place] [address] documented in this encounter Visit Diagnoses Diagnosis Abnormal glucose tolerance in mother complicating Abnormal maternal glucose tolerance, complicating , childbirth, or the puerperium, unspecified as to episode of care documented in this encounter Care Teams Beam Sealer Relationship Specialty Start Date End Date Aruna Valero DO [address] [place] [address] [place] [id number] PCP - General Internal Medicine 02/07/16 documented as of this encounter
--- OUTSIDE RECORDS SUMMARY | 2023-08-04 06:31 | External Medical Summary | Summary of Care ---
Author Name Unknown Organization [facility] Address [address] [place] [address] Phone [phone] Care Team Providers Care Blast Furnace Supervisor Name Role Phone Aruna Valero Primary Care Provider Encounter Details Date Type Department Care Team (Late st Contact Info) Description 06/10/2023 Orders Only Outcomes Research Department [address] [place] [address] Lyndsay Devries CHRA [employer] Research Other*[id number] Allergies No known active allergiesdocumented as of this encounter (statuses as of 06/10/2023) Medications Medication Sig Dispensed Refills Start Date End Date Status Vitamin 27-0.8 MG Oral Tablet Take by mouth. 0 Active documented as of this encounter (statuses as of 06/10/2023) Active Problems Problem Noted Date Diagnosed Date [...] as of this encounter (statuses as of 06/10/2023) Resolved Problems Problem Noted Date Diagnosed Date [...] as of this encounter (statuses as of 06/10/2023) Immunizations Name Administration Dates Next Due DTaP [...] money to get more. Never true 07/09/2022 [place] Depression Scale Answer Date Recorded [place] Depression Scale Total 3 05/29/2023 The thought [...] 06/12/2023 4:30 PM EDT Office Visit Gynecology/Obstetrics [facility] [address] [place] [address] Cecy Garcia PA-C [address] [place] [address] 06/26/2023 4:30 PM EDT Office Visit Gynecology/Obstetrics [facility] [address] [place] [address] Cecy Garcia PA-C [address] [place] [address] 07/10/2023 2:30 PM EDT Imaging Radiology [facility] [address] [place] [address] 07/10/2023 4:30 PM EDT Office Visit Gynecology/Obstetrics [facility] [address] [place] [address] Cecy Garcia PA-C [address] [place] [address] 07/24/2023 4:30 PM EDT Office Visit Gynecology/Obstetrics [facility] [address] [place] [address] Cecy Garcia PA-C [address] [place] [address] 07/31/2023 2:30 PM EDT Office Visit Gynecology/Obstetrics [facility] [address] [place] [address] Cyril Claire MD [address] [place] [address] Mela Salazar Stress Tests [facility] [address] [place] [address] Scheduled Orders Name Type Priority Associated Diagnoses Orde r Schedule MYCODE INITIAL ADULT Lab Routine [employer] Other*[id number] Expected: 06/10/2023 (Approximate), Expires: 06/29/2024 Health Maintenance Due Date Last Done Comments GARDASIL-HPV IMMUNIZATION SERIES (2 - 3-dose series) 03/25/2013 02/25/2013 COVID-19 Vaccine (24 season) 2022 Influenza Vaccine (FLU shot) (#1) [...] as of this encounter Visit Diagnoses Diagnosis [employer] Other*[id number] documented in this encounter Care Teams Blast Furnace Supervisor Relationship Specialty Start Date End Date Aruna Valero DO [address] [place] [address] [place] [id number] PCP - General Internal Medicine 02/07/16 documented as of this encounter
--- OUTSIDE RECORDS SUMMARY | 2023-08-04 06:31 | External Medical Summary | Summary of Care ---
Author Name Unknown Organization [facility] Address [address] [facility] [place] [address] Phone [phone] Care Team Providers Care Tour Actor Name Role Phone Aruna Valero Primary Care Provider Reason for Visit * Reason Comments Return Visit Encounter Details Date Type Department Care Team (Latest Contact Info) Description 07/17/2023 9:45 AM EDT Office Visit Gynecology/Obstetric s [facility] [address] [place] [address] Char Jama CRNP [address] [place] [address] Obesity, Class II, BMI 35-39.9, isolated (see actual BMI)*; Encounter for supervision of other normal in third trimester; Herpes simplex infection of genitourinary system; Excessive growth, antepartum, single or unspecified fetus; renal anomaly, single gestation Allergies No known active allergiesdocumented as of this encounter (statuses as of 07/17/2023) Medications Medication Sig Dispensed Refills Start Date [...] as of this encounter (statuses as of 07/17/2023) Active Problems Problem Noted Date Diagnosed Date Excessive growth, antepartum 07/12/2023 Overview: AC 97% at 35 weeks MFM did not recommend repeat 3 hour gtt, healthy diet/exercise Repeat growth in 3-4 weeks renal anomaly, single gestation 07/12/2023 Overview: R UTD at 35 weeks. MFM recommended pediatrics be made aware. Uterine size [...] as of this encounter (statuses as of 07/17/2023) Resolved Problems Problem Noted Date Diagnosed Date [...] as of this encounter (statuses as of 07/17/2023) Immunizations Name Administration Dates Next Due DTaP [...] money to get more. Never true 07/09/2022 [place] Depression Scale Answer Date Recorded [place] Depression Scale Total 3 07/10/2023 The thought [...] Reading Time Taken Comments Blood Pressure 120/70 07/17/2023 9:22 AM EDT Pulse - - Temperature - - Respiratory Rate - - Oxygen Saturation - - Inhaled Oxygen Concentration - - Weight 104.8 kg (231 lb) 07/17/2023 9:22 AM EDT Height 162.6 cm (5' 4") 07/17/2023 9:22 AM EDT Body Mass Index 39.65 07/17/2023 9:22 AM EDT documented in this encounter Progress Notes * Char Jama CRNP - 07/17/2023 9:45 AM EDT 36w2d Since yesterday she is noticing leaking of fluid- unsure if urine or not. Doesn't always have to goto the bathroom when she feels it. Hasn't been wearing a pad, but underwear are more wet today thanthey were yesterday. No other concerns. Baby is active. Denies contractions or bleeding. Has Rx for Valrex. Hat Cleaner Documentation Provider requested milk pickup driver. Name of milk pickup driver: Mayra GBS obtained. SSE done. Normal pH, no pooling. ROM+ sent, awaiting result. JAI Bray * Cammie Diane LPN - 07/17/2023 9:22 AM EDT 36w2d Pt has had a increase in discharge since yesterday feels like she is peeing herself documented in this encounter Plan of Treatment Upcoming Encounters Date Type Department Care Team (Late st Contact Info) Description 07/24/2023 4:30 PM EDT Office Visit Gynecology/Obstetrics [facility] [address] [place] [address] Cecy Garcia PA-C [address] [place] [address] 07/25/2023 10:00 AM EDT Office Visit Gynecology/Obstetrics [facility] [address] [place] [address] Char Jama CRNP [address] [place] [address] Martin Non Stress Tests [facility] [address] [place] [address] 07/31/2023 1:30 PM EDT Imaging Radiology [facility] [address] [place] [address] 07/31/2023 2:30 PM EDT Office Visit Gynecology/Obstetrics [facility] [address] [place] [address] Cyril Claire MD [address] [place] [address] Martin Non Stress Tests [facility] [address] [place] [address] 08/08/2023 9:00 AM EDT Office Visit Gynecology/Obstetrics [facility] [address] [place] [address] Emilia Gross PA-C [address] [place] [address] Martin, Non Stress Tests Peter [address] [place] [address] Pending Results Name Type Priority Associated Diagnoses Date /Time GROUP B STREP CULTURE/PCR Lab Routine Encounter for supervision of other normal in third trimester 07/17/2023 9:41 AM EDT RUPTURE OF MEMBRANE Lab STAT Encounter for supervision of other normal in third trimester 07/17/2023 9:41 AM EDT Scheduled Orders Name Type Priority Associated Diagnoses Orde r Schedule GROUP B STREP CULTURE/PCR Lab Routine Encounter for supervision of other normal in third trimester Expected: 07/17/2023, Expires: 07/16/2024 RUPTURE OF MEMBRANE Lab STAT Encounter for supervision of other normal in third trimester Expected: 07/17/2023, Expires: 07/16/2024 Health Maintenance Due Date Last Done Comments [...] isolated (see actual BMI)- Primary Morbid obesity Encounter for supervision of other normal in third trimester Herpes simplex infection of genitourinary system Excessive growth, antepartum, single or unspecified fetus renal anomaly, single gestation documented in this encounter Care Teams Tour Actor Relationship Specialty Start Date End Date Aruna Valero DO [address] [place] [address] [place] [id number] PCP - General Internal Medicine 02/07/16 documented as of this encounter
--- OUTSIDE RECORDS SUMMARY | 2023-08-04 06:31 | External Medical Summary ---
Author Name Unknown Address Unknown Organization K0[facility] [place] [address] - [address] [place] [address] Laboratory Report Ordering Provider Test Date Status STEPHANIE BARBOSA 05/20/2023 07:31:24 Final Based on ACOG guideline, ges tational diabetes mellitus is diagnosed when any of the following is met:
Fasting is greater than or equal to 95 mg/dL
1 hour is greater than or equal to 180 mg/dL
2 hour is greater than or equal to 155 mg/dL
3 hour is greater than or equal to 140 mg/dL Observation Date Value Abnormality Reference (Units ) Status Glucose, fasting 05/20/2023 07:31:24 87 70- 94 (mg/dL) Final Performing Location [facility]ATORY [facility] [place] [address] 0 - [address] [place] [address]
--- OUTSIDE RECORDS SUMMARY | 2023-08-04 06:31 | External Medical Summary | Summary of Care ---
Author Name Unknown Organization [facility] Address [address] [facility] [place] [address] Phone [phone] Care Team Providers Care Ecclesiastical Worker Name Role Phone Aruna Valero Primary Care Provider Reason for Visit * Reason Comments Outpatient Testing Encounter Details Date Type Department Care Team (Late st Contact Info) Description 05/16/2023 8:40 AM EST Laboratory Laboratory, [facility] [phone] [facility] 132 [place] [address] Supervision of other normal , antepartum Allergies No known active allergiesdocumented as of [...] money to get more. Never true 07/09/2022 [place] Depression Scale Answer Date Recorded [place] Depression Scale Total 3 01/08/2023 The thought [...] Description 05/29/2023 3:00 PM EST Imaging Radiology [facility] 2nd [facility] [place] [address] [place] [address] 05/29/2023 4:30 PM EST Office Visit Gynecology/Obstetrics [facility] [address] [place] [address] Cecy Garcia PA-C [address] [place] [address] 06/12/2023 4:30 PM EDT Office Visit Gynecology/Obstetrics [facility] [address] [place] [address] Cecy Garcia PA-C [address] [place] [address] 06/26/2023 4:30 PM EDT Office Visit Gynecology/Obstetrics [facility] [address] [place] [address] Cecy Garcia PA-C [address] [place] [address] 07/10/2023 4:30 PM EDT Office Visit Gynecology/Obstetrics [facility] [address] [place] [address] Cecy Garcia PA-C [address] [place] [address] 07/24/2023 4:30 PM EDT Office Visit Gynecology/Obstetrics [facility] [address] [place] [address] Cecy Garcia PA-C [address] [place] [address] 07/31/2023 2:30 PM EDT Office Visit Gynecology/Obstetrics [facility] [address] [place] [address] Cyril Claire MD [address] [place] [address] Salazar, Non Stress Tests Peter [address] [place] [address] 08/07/2023 2:30 PM EDT Office Visit Gynecology/Obstetrics [facility] [address] [place] [address] Char Jama CRNP [address] [place] [address] Salazar, Non Stress Tests Peter [address] [place] [address] Pending Results Name Type Priority Associated Diagnoses Date /Time SYPHILIS ANTIBODY SCREEN WITH REFLEX TO RPR Lab Routine Supervision of other normal , antepartum 05/16/2023 9:01 AM EST CBC WITH WBC DIFFERENTIAL AND ANEMIA REFLEX WORKUP Lab Routine Supervision of other normal , antepartum 05/16/2023 9:01 AM EST 50-G GESTATIONAL GLUCOSE, 1 HOUR Lab Routine Supervision of other normal , antepartum 05/16/2023 9:01 AM EST SYPHILIS ANTIBODY SCREEN Lab Routine Supervision of other normal , antepartum 05/16/2023 9:01 AM EST ANEMIA CBC Lab Routine Supervision of other normal , antepartum 05/16/2023 9:01 AM EST DIFFERENTIAL, AUTOMATED Lab Routine Supervision of other normal , antepartum 05/16/2023 9:01 AM EST ANEMIA REFLEX CHEMISTRY HOLD Lab Routine Supervision of other normal , antepartum 05/16/2023 9:01 AM EST Health Maintenance Due Date Last [...] Diagnoses Diagnosis Supervision of other normal , antepartum documented in this encounter Care Teams Ecclesiastical Worker Relationship Specialty Start Date End Date Aruna Valero DO [address] [place] [address] [place] [phone] PCP - General Internal Medicine 02/07/16 documented as of this encounter
--- OUTSIDE RECORDS SUMMARY | 2023-08-04 06:31 | External Medical Summary | Summary of Care ---
Author Name Unknown Organization [facility] Address [address] [place] [facility] [place] [address] Phone [phone] Care Team Providers Care Electrical And Instrumentation Manager Name Role Phone Aruna Valero Primary Care Provider Reason for Visit * Reason Onset Date Comments Test Results 07/10/2023 Unexpected or In determinate Result Encounter Details Date Type Department Care Team (Late st Contact Info) Description 07/10/2023 Telephone Gynecology/Obstetrics [facility] [address] [place] [address] Cecy Garcia PA-C [address] [place] [address] Test Results (Unexpected or Indeterminate ... Allergies [...] money to get more. Never true 07/09/2022 [place] Depression Scale Answer Date Recorded [place] Depression Scale Total 3 07/10/2023 The thought [...] Telephone Encounter - Cecy Garcia PA-C - 07/11/2023 10:40 AM EDT Acknowledged. Ask-a-doc to [facility] sent regarding further recommendations. Thank you. Cecy Garcia PA-C * Telephone Encounter - Cammie Diane LPN - 07/11/2023 7:28 AM EDT Please see t/e from radiologist * Telephone Encounter - Andree Covarrubias OSA - 07/10/2023 4:14 PM EDT Hello- The radiologist discovered an unexpected or indeterminate finding on Laura Thompson ([id number]) and asks that you review the following [...] Thank you, CHRISTINE Walker Client Service Rep [facility] [place] documented in this encounter Plan of Treatment Upcoming Encounters Date Type Department Care Team (Late st Contact Info) Description 07/16/2023 8:45 AM EDT Office Visit Gynecology/Obstetrics [facility] 132 [facility] [place] [address] Joaquín Alvares, D[address] [place] [address] 07/24/2023 4:30 PM EDT Office Visit Gynecology/Obstetrics [facility] [address] [place] [address] Cecy Garcia PA-C [address] [place] [address] 07/31/2023 2:30 PM EDT Office Visit Gynecology/Obstetrics [facility] [address] [place] [address] Cyril Claire MD [address] [place] [address] Mela Salazar Stress Tests Peter [address] [place] [address] Health Maintenance Due Date Last Done Comments [...] filedocumented as of this encounter Care Teams Electrical And Instrumentation Manager Relationship Specialty Start Date End Date Aruna Valero DO [address] [place] [address] [place] [phone] PCP - General Internal Medicine 02/07/16 documented as of this encounter
--- OUTSIDE RECORDS SUMMARY | 2023-08-04 06:31 | External Medical Summary | Summary of Care ---
Author Name Unknown Organization [facility] Address [address] [place] [facility] [facility] [place] [address] Phone [phone] Care Team Providers Care Welcome [facility] Agent Name Role Phone Aruna Valero Primary Care Provider Reason for Visit * Reason Onset Date Comments Test Results 07/10/2023 Unexpected or In determinate Result Encounter Details Date Type Department Care Team (Late st Contact Info) Description 07/10/2023 Telephone Gynecology/Obstetrics [facility] [address] [place] [address] Cecy Garcia PA-C [address] [place] [address] Test Results (Unexpected or Indeterminate ... Allergies [...] money to get more. Never true 07/09/2022 [place] Depression Scale Answer Date Recorded [place] Depression Scale Total 3 07/10/2023 The thought [...] encounter Miscellaneous Notes * Telephone Encounter - Andree Covarrubias OSA - 07/10/2023 4:14 PM EDT Hello- The radiologist discovered an unexpected or indeterminate finding on Laura Thompson ([id number]) and asks that you review the following [...] Thank you, CHRISTINE Walker Client Service Rep [facility] documented in this encounter Plan of Treatment Upcoming Encounters Date Type Department Care Team (Late st Contact Info) Description 07/16/2023 8:45 AM EDT Office Visit Gynecology/Obstetrics [facility] [address] [place] [address] Joaquín Alvares, [facility] [address] [facility] [place] [address] 07/24/2023 4:30 PM EDT Office Visit Gynecology/Obstetrics [facility] [address] [place] [address] Cecy Garcia PA-C [address] [place] [address] 07/31/2023 2:30 PM EDT Office Visit Gynecology/Obstetrics [facility] [address] [place] [address] Cyril Claire MD [address] [place] [address] Salazar, Non Stress Tests Peter [address] [place] [address] Health Maintenance Due Date Last Done Comments GARDASIL-HPV IMMUNIZATION SERIES (2 - 3-dose series) 03/25/2013 02/25/2013 COVID-19 Vaccine (2022-24 season) 2022 Influenza Vaccine (FLU shot) (Season [...] filedocumented as of this encounter Care Teams Welcome Center Agent Relationship Specialty Start Date End Date Aruna Valero DO [address] [place] [address] [place] [id number] PCP - General Internal Medicine 02/07/16 documented as of this encounter
--- OUTSIDE RECORDS SUMMARY | 2023-08-04 06:31 | External Medical Summary | Summary of Care ---
Author Name Unknown Organization [facility] Address [address] [facility] [place] [address] Phone [phone] Care Team Providers Care Lens Polisher Hand Name Role Phone Aruna Valero Primary Care Provider Reason for Visit * Reason Comments Return Visit Encounter Details Date Type Department Care Team (Latest Contact Info) Description 06/26/2023 4:30 PM EDT Office Visit Gynecology/Obstetric s [facility] [address] [place] [address] Cecy Garcia PA-C [address] [place] [address] Supervision of other normal , antepartum*; Obesity, [...] Diagnosed Date Uterine size date discrepancy 06/13/19 Supervision of other normal , antepartu m [...] money to get more. Never true 07/09/2022 Oto Depression Scale Answer Date Recorded Oto Depression Scale Total 3 05/29/2023 The thought of harming myself has occurred to me . Never 05/29/2023 Estimated Date of Delivery Comme nts Yes 08/12/2023 Based on last me nstrual period of 11/05/2022 (Exact Date) Sex and Gender Information Value Date Recorded Sex Assigned at Female 03/09/2019 2:54 PM EST Gender Identity Female 03/09/2019 2:54 PM EST Sexual Orientation Straight 03/09/2019 2 :54 PM EST Job Start Date Occupation Industry Not on file Not on file Not on file documented as of this encounter Last Filed Vital Signs Vital Sign Reading Time Taken Comments Blood Pressure 114/66 06/26/2023 4:25 PM EDT Pulse - - Temperature - - Respiratory Rate - - Oxygen Saturation - - Inhaled Oxygen Concentration - - Weight 103.4 kg (228 lb) 06/26/2023 4:25 PM EDT Height 162.6 cm (5' 4") 06/26/2023 4:25 PM EDT Body Mass Index 39.14 06/26/2023 4:25 PM EDT documented in this encounter Progress Notes * Cecy Garcia PA-C - 06/26/2023 4:44 PM EDT 33w2d [place] foggy today, nurse at work to BP and 146/82. Denied h/a, vision changes, cp, sob, ruq pain. Admits not well hydrated and under some stress lately. BP WNL here today. Growth scheduled 07/10/2023, baby was breech last ultrasound. S>D today. Denies VB, LOF, contractions. Pos fm. RTC in 2 weeks Cecy Garcia PA-C documented in this encounter Nursing Notes * Nery Blair LPN - 06/26/2023 4:30 PM EDT 33w2d Had elevated BP x 2 at work today. Was feeling different. Denies CORREA, RUQ, visual changes. Given labor instructions. documented in this encounter Plan of Treatment Upcoming Encounters Date Type Department Care Team (Late st Contact Info) Description 07/10/2023 2:30 PM EDT Imaging Radiology [address] [place] [address] 07/10/2023 4:30 PM EDT Office Visit Gynecology/Obstetrics [facility] [address] [place] [address] Cecy Garcia PA-C [address] [place] [address] 07/24/2023 4:30 PM EDT Office Visit Gynecology/Obstetrics [facility] [address] [place] [address] Cecy Garcia PA-C [address] [place] [address] 07/31/2023 2:30 PM EDT Office Visit Gynecology/Obstetrics [facility] [address] [place] [address] Cyril Claire MD [address] [place] [address] Salazar Non Stress Tests [facility] [address] [place] [address] Health Maintenance Due Date Last Done Comments [...] system documented in this encounter Care Teams Lens Polisher Hand Relationship Specialty Start Date End Date Aruna Valero DO [address] [place] [address] [place] [phone] PCP - General Internal Medicine 02/07/16 documented as of this encounter
--- OUTSIDE RECORDS SUMMARY | 2023-08-04 06:32 | External Medical Summary | Summary of Care ---
Author Name Unknown Organization [facility] Address [address] [facility] [address] Phone [phone] Care Team Providers Care Lithographic Retoucher Apprentice Name Role Phone Aruna Valero Primary Care Provider Encounter Details Date Type Department Care Team (Late st Contact Info) Description 05/02/2023 Telephone Gynecology/Obstetrics [facility] [address] [place] [address] Esperanza Ray [facility] [address] [place] [address] Allergies No known active allergiesdocumented as of this encounter (statuses as of 05/02/2023) Medications Medication Sig Dispensed Refills Start Date End Date Status Vitamin 27-0.8 MG Oral Tablet Take by mouth. 0 Active documented as of this encounter (statuses as of 05/02/2023) Active Problems Problem Noted Date Diagnosed Date [...] as of this encounter (statuses as of 05/02/2023) Resolved Problems Problem Noted Date Diagnosed Date [...] as of this encounter (statuses as of 05/02/2023) Immunizations Name Administration Dates Next Due DTaP [...] Inj 01/13/2013 TDAP (age 10 and older)(Boostrix) 09/29/2021,09/2014 TDAP (age 11 and older)(Adacel) 10/05/2008 Varicella [...] money to get more. Never true 07/09/2022 [place] Depression Scale Answer Date Recorded [place] Depression Scale Total 3 01/08/2023 The thought [...] encounter Miscellaneous Notes * Telephone Encounter - Rose Hassan RN - 05/02/2023 2:39 PM EST T/C to pt, pt aware of results. Please assist with scheduling growth US in 4 weeks. Thank you! * Telephone Encounter - Rose Hassan RN - 05/02/2023 2:39 PM EST ----- Message from Esperanza Ray CNM sent at 05/02/2023 12:52 PM EST ----- Please let patient know her ultrasound showed normal growth, normal fluid level, and baby was head down. Please schedule her next growth US in 4 weeks. Thanks! Esperanza Ray CNM documented in this encounter Plan of Treatment Upcoming Encounters Date Type Department Care Team (Late st Contact Info) Description 05/16/2023 8:15 AM EST Office Visit [facility]cology[facility] [address] [place] [address] Char Jama CRNP [address] [place] [address] 05/16/2023 8:40 AM EST Laboratory Laboratory, [facility] [address] [place] [phone] [facility] [address] [place] [address] 05/29/2023 4:30 PM EST Office Visit Gynecology/Obstetrics [facility] [address] [place] [address] Cecy Garcia PA-C [address] [place] [address] 06/12/2023 4:30 PM EDT Office Visit Gynecology/Obst[facility]s [facility] [address] [place] [address] Cecy Garcia PA-C [address] [place] [address] 06/26/2023 4:30 PM EDT Office Visit Gynecology/Obstetrics [facility] [address] [place] [address] Cecy Garcia PA-C [address] [place] [address] 07/10/2023 4:30 PM EDT Office Visit Gynecology/Obstetrics [facility] [address] [place] [address] Cecy Garcia PA-C [address] [place] [address] 07/24/2023 4:30 PM EDT Office Visit Gynecology/Obstetrics [facility] [address] [place] [address] Cecy Garcia PA-C [address] [place] [address] 07/31/2023 2:30 PM EDT Office Visit Gynecology/Obstetrics [facility] [address] [place] [address] Cyril Claire MD [address] [place] [address] Martin Non Stress Tests [facility] [address] [place] [address] 08/07/2023 2:30 PM EDT Office Visit Gynecology/Obstetrics [facility] [address] [place] [address] Char Jama CRNP [address] [place] [address] Salazar, Non Stress Tests Peter [address] [place] [address] Health Maintenance Due Date Last Done Comments COVID-19 Vaccine (#1) 1997 GARDASIL-HPV IMMUNIZATION SERIES (2 - 3-dose series) 03/25/2013 02/25/2013 Influenza Vaccine (FLU shot) (#1) 2022 12/15/2018, 01/14/2017, 02/07/2016, Additional history exists Depression Screening 07/10/2023 07/09/2022 Pap Smear 12/30/2023 12/29/2020, 05/06/2018 DTaP,Tdap,and Td Vaccines (9 - Td or Tdap) 09/30/2031 09/29/2021, 07/06/2014, 10/05/2008, Additional history exists Hepatitis B Completed 1997, [...] filedocumented as of this encounter Care Teams Lithographic Retoucher Apprentice Relationship Specialty Start Date End Date Aruna Valero DO [address] [place] [address] [place] [phone] PCP - General Internal Medicine 02/07/16 documented as of this encounter
--- OUTSIDE RECORDS SUMMARY | 2023-08-04 06:32 | External Medical Summary | Summary of Care ---
Author Name Unknown Organization [facility] Address [address] [facility] [place] [address] Phone [phone] Care Team Providers Care Field Artillery Senior Sergeant Name Role Phone Aruna Valero DO Primary Care Provider Reason for Visit * Reason Onset Date Comments Fax 01/21/2023 Proof of pregnan cy Encounter Details Date Type Department Care Team (Late st Contact Info) Description 01/21/2023 Telephone Family Medicine [address] [phone] Aruna Valero [address] [place] [phone] Fax (Proof of ) Allergies No known active allergiesdocumented as of this encounter (statuses as of 04/22/2023) Medications Medication Sig Dispensed Refills Start Date End Date Status Vitamin 27-0.8 MG Oral Tablet Take by mouth. 0 Active documented as of this encounter (statuses as of 04/22/2023) Active Problems Problem Noted Date Diagnosed Date [...] as of this encounter (statuses as of 04/22/2023) Resolved Problems Problem Noted Date Diagnosed Date [...] as of this encounter (statuses as of 04/22/2023) Immunizations Name Administration Dates Next Due DTaP [...] money to get more. Never true 07/09/2022 Breaks Depression Scale Answer Date Recorded Breaks Depression Scale Total 3 01/08/2023 The thought [...] encounter Miscellaneous Notes * Telephone Encounter - Mayra Alejandro LPN - 01/21/2023 9:33 AM EDT Letter faxed to provided number below. * Telephone Encounter - Tess Waller OSA - 01/21/2023 9:27 AM EDT Patient called back with fax number for the [facility] office Fax number is [phone] * Telephone Encounter - Nicole Andrews OSA - 01/21/2023 8:18 AM EDT Caller requesting the following information to be faxed: Name/Company of caller: Pt Information requested to be faxed: proof of positive test Fax number: unknown Attention to Name/Company: unknown Any additional information?: pt will be calling back with a fax number to send this to documented in this encounter Plan of Treatment Upcoming Encounters Date Type Department Care Team (Late st Contact Info) Description 05/01/2023 3:00 PM EST Imaging Radiology [facility] 2[facility] [address] [place] [address] 05/01/2023 4:30 PM EST Office Visit Gynecology/Obstetrics [facility] [address] [place] [address] Cecy Garcia PA-C [address] [place] [address] 05/29/2023 4:30 PM EST Office Visit Gynecology/Obstetrics [facility] [address] [place] [address] Cecy Garcia PA-C [address] [place] [address] 06/12/2023 4:30 PM EDT Office Visit Gynecology/Obstetrics [facility] [address] [place] [address] Cecy Garcia PA-C [address] [place] [address] 06/26/2023 4:30 PM EDT Office Visit Gynecology/Obstetrics [facility] [address] [place] [address] Cecy Garcia PA-C [address] [place] [address] 07/10/2023 4:30 PM EDT Office Visit Gynecology/Obstetrics [facility] [address] [place] [address] Cecy Garcia PA-C [address] [place] [address] 07/24/2023 4:30 PM EDT Office Visit Gynecology/Obstetrics [facility] [address] [place] [address] Cecy Garcia PA-C [address] [place] [address] 07/31/2023 2:30 PM EDT Office Visit Gynecology/Obstetrics [facility] [address] [place] [address] Cyril Claire MD [address] [place] [address] SalazarMela norman Stress Tests [facility] [address] [place] [address] 08/07/2023 2:30 PM EDT Office Visit Gynecology/Obstetrics [facility] [address] [place] [address] Char Jama CRNP [address] [place] [address] Martin, Non Stress Tests [facility] [address] [place] [address] Health Maintenance Due Date Last Done Comments [...] filedocumented as of this encounter Care Teams Field Artillery Senior Sergeant Relationship Specialty Start Date End Date Aruna Valero DO [address] [place] [address] [place] [phone] PCP - General Internal Medicine 02/07/16 documented as of this encounter
--- OUTSIDE RECORDS SUMMARY | 2023-08-04 06:32 | External Medical Summary | Summary of Care ---
Author Name Unknown Organization [facility] Address [address] [facility] [place] [address] Phone [phone] Care Team Providers Care Cafeteria Director Name Role Phone Aruna Valero Primary Care Provider [phone] Reason for Visit * Reason Comments Return Visit Encounter Details Date Type Department Care Team (Late st Contact Info) Description 04/02/2023 4:15 PM EST [facility] [address] [facility] [place] [address] Alexis Ray, [facility] [address] [facility] [place] [address] Encounter for supervision of other normal , second trimester*; Obesity, Class II, BMI 35-39.9, isolated (see actual BMI); Herpes simplex infection of genitourinary system; Supervision of other normal , antepartum; Class 2 obesity Allergies No known active allergiesdocumented as of [...] money to get more. Never true 07/09/2022 Mullens Depression Scale Answer Date Recorded Mull[place] Depression Scale Total 3 01/08/2023 The thought [...] Reading Time Taken Comments Blood Pressure 118/64 04/02/2023 4:12 PM EST Pulse - - Temperature - - Respiratory Rate - - Oxygen Saturation - - Inhaled Oxygen Concentration - - Weight 98.4 kg (217 lb) 04/02/2023 4:12 PM EST Height 162.6 cm (5' 4") 04/02/2023 4:12 PM EST Body Mass Index 37.25 04/02/2023 4:12 PM EST documented in this encounter Progress Notes * Alexis Ray CNM - 04/02/2023 4:14 PM EST Laura Thompson is a 28 year old female here for her routine OB appointment at 21w1d Her Estimated Date of Delivery: 08/12/23 REVIEW OF SYSTEMS: She affirms movement. Denies vaginal bleeding, LOF, contractions, N/V, headaches, vision changes, and RUQ pain. Denies tobacco and marijuana. Denies concern for depression or anxiety. She had a headache with vision changes 1 month ago but not since then. PHYSICAL EXAM: Filed Vitals: 04/02/23 1612 BP: 118/64 Weight: 98.4 kg (217 lb) Height: 1.626 m (5' 4") +FHT 153 bpm (per ultrasound report) Fundal height: not assessed ASSESSMENT/PLAN: (E66.9) Obesity, Class II, BMI 35-39.9, isolated (see actual BMI) Plan: -Growth US [id number] (A60.00) Herpes simplex infection of genitourinary system Plan: -Valtrex suppression to start at 36 weeks (Z34.80) Supervision of other normal , antepartum Plan: - recommended flu vaccine; patient declined. - had anatomy US - reviewed with patient that results were WNL - RTO in 4 weeks Alexis Ray CNM documented in this encounter Nursing Notes * Cammie Diane LPN - 04/02/2023 4:06 PM EST 21w1d Anatomy today documented in this encounter Miscellaneous Notes * Addendum Note - Alexis Ray CNM - 05/02/2023 12:52 PM ESTAddended by: ALEXIS RAY on: 05/02/2023 12:52 PM Modules accepted: Orders documented in this encounter Plan of Treatment Upcoming Encounters Date Type Department Care Team (Late st Contact Info) Description 05/16/2023 8:15 AM EST Office Visit Gynecology/Obstetrics [facility] [address] [place], [place] [address] Char Jama CRNP [address] [place] [address] 05/16/2023 8:40 AM EST Laboratory Laboratory, [facility] [address] [place] [address] [facility] [address] [place] [address] 05/29/2023 4:30 PM EST Office Visit Gynecology/Obstetrics [facility] [address] [place] [address] Cecy Garcia PA-C [address] [place] [address] 06/12/2023 4:30 PM EDT Office Visit Gynecology/Obstetrics [facility] [address] [place] [address] Cecy Garcia PA-C [address] [place] [address] 06/26/2023 4:30 PM EDT Office Visit Gynecology/Obstetrics [facility] [address] [place] [address] Cecy Garcia PA-C [address] [place] [address] 07/10/2023 4:30 PM EDT Office Visit Gynecology/Obstetrics [facility] [address] [place] [address] Cecy Garcia PA-C [address] [place] [address] 07/24/2023 4:30 PM EDT Office Visit Gynecology/Obstetrics [facility] [address] [place] [address] Cecy Garcia PA-C [address] [place] [address] 07/31/2023 2:30 PM EDT Office Visit Gynecology/Obstetrics [facility] [address] [place] [address] Cyril Claire MD [address] [place] [address] Martin Non Stress Tests [facility] [address] [place] [address] 08/07/2023 2:30 PM EDT Office Visit Gynecology/Obstetrics [facility] [address] [place] [address] Char Jama CRNP [address] [place] [address] Martin, Non Stress Tests [facility] [address] [place] [address] Scheduled Orders Name Type Priority Associated Diagnoses Orde r Schedule US PREG FOLLOW-UP EACH FETUS Medical Imaging Routine Class 2 obesity Encounter for supervision of other normal , second trimester Expected: 05/31/2023, Expires: 05/30/2024 Health Maintenance Due Date Last Done Comments [...] Not on filedocumented as of this encounter Results * US PREG FOLLOW-UP EACH FETUS (05/01/2023 3:35 PM EST) Anatomical Region Laterality Modality Pelvis, Body Ultrasound 05/01/2023 4:08 PM EST Impressions 05/01/2023 4:06 PM EST IMPRESSION 1. Growth within normal limits utilizing TREVA from initial scan. EFW: 923 g 72nd percentile. 2. Normal NAYE 3. Vertex presentation. Narrative 05/01/2023 4:06 PM EST EXAM US PREG FOLLOW-UP EACH FETUS - 05/01/2023 3:35 pm HISTORY growth US for class 2 obesity TECHNIQUE Sonographic examination performed. FINDINGS General : Up Presentation: Vertex heart rate: 142 bpm NAYE: 17.6 cm which is between the 50th and 95th percentiles for this stage of . Placenta: Posterior, no previa Anatomy 4-chamber view: Seen Stomach: Seen Kidneys: Seen Bladder: Seen Biometry The previous study of 01/08/2023 estimated the date of delivery of 08/10/2023. Utilizing that date, current gestational age is 25 weeks 4 days. Biparietal diameter: 6.5 cm, 26w 2d Head circumference: 24.6 cm, 26w 5d Abdominal circumference: 22.2 cm, 26w 5d Femur length: 4.7 cm, 25w 6d Humeral length: 4.5 cm, 26w 5d HC/AC: 1.11, within normal limits EFW: 923 g 72nd percentile. Utilizing the date of delivery obtained from the initial scan, growth of the BPD, HC, AC, femur and humerus is within normal limits. Procedure Note Morro Booker II, MD - 05/01/2023 EXAM US PREG FOLLOW-UP EACH FETUS - 05/01/2023 3:35 pm HISTORY growth US for class 2 obesity TECHNIQUE Sonographic examination performed. FINDINGS General : Up Presentation: Vertex heart rate: 142 bpm NAYE: 17.6 cm which is between the 50th and 95th percentiles for this stageof . Placenta: Posterior, no previa Anatomy 4-chamber view: Seen Stomach: Seen Kidneys: Seen Bladder: Seen Biometry The previous study of 01/08/2023 estimated the date of delivery of08/10/2023. Utilizing that date, current gestational age is 25 weeks 4days. Biparietal diameter: 6.5 cm, 26w 2d Head circumference: 24.6 cm, 26w 5d Abdominal circumference: 22.2 cm, 26w 5d Femur length: 4.7 cm, 25w 6d Humeral length: 4.5 cm, 26w 5d HC/AC: 1.11, within normal limits EFW: 923 g 72nd percentile. Utilizing the date of delivery obtained from the initial scan, growth ofthe BPD, HC, AC, femur and humerus is within normal limits. IMPRESSION IMPRESSION 1. Growth within normal limits utilizing TREVA from initial scan. EFW: 923g 72nd percentile. 2. Normal NAYE 3. Vertex presentation. Alexis Ray CNM RAD ULTRASOUND documented in this encounter Visit Diagnoses Diagnosis Encounter for supervision of other normal , second trimester- Primary Obesity, Class II, BMI 35-39.9, isolated (see actual BMI) Morbid obesity Herpes simplex infection of genitourinary system Supervision of other normal , antepartum Class 2 obesity Class 2 obesity Encounter for supervision of other normal , second trimester documented in this encounter Care Teams Cafeteria Director Relationship Specialty Start Date End Date Aruna Valero DO [address] [place] [address] [place] [address] PCP - General Internal Medicine 02/07/16 documented as of this encounter
--- OUTSIDE RECORDS SUMMARY | 2023-08-04 06:32 | External Medical Summary | Summary of Care ---
Author Name Unknown Organization [facility] Address [address] [facility] [address] Phone [phone] Care Team Providers Care Lighting Adviser Name Role Phone Aruna Valero Primary Care Provider Encounter Details Date Type Department Care Team (Late st Contact Info) Description 05/02/2023 Telephone Gynecology/Obstetrics [facility] [address] [place] [address] Esperanza Ray [facility] [address] [place] [address] Allergies No known active allergiesdocumented [...] money to get more. Never true 07/09/2022 [place] Depression Scale Answer Date Recorded [place] Depression Scale Total 3 01/08/2023 The thought [...] Encounter - Augustina Reynolds MED ASSIST - 05/02/2023 3:54 PM EST Appt scheduled, pt aware * Telephone Encounter - Rose Hassan RN [...] 05/16/2023 8:15 AM EST Office Visit Gynecology/Obstetrics [facility] 132 [facility] [place] [address] Char Jama CRNP 132 [facility] [place] [address] 05/16/2023 8:40 AM EST [facility] [address] [place] [phone] SalazarJuly norman [facility] [place] [address] 05/29/2023 3:00 PM EST Imaging Radiology [facility] 2nd [facility] [address] [place] [address] 05/29/2023 4:30 PM EST Office Visit Gynecology/Obstetrics [facility] [address] [place] [address] Cecy Garcia PA-C [address] [place] [address] 06/12/2023 4:30 PM EDT Office Visit Gynecology/Obstetrics [facility] [address] [place] [address] Cecy Garcia PA-C [address] [place] [address] 06/26/2023 4:30 PM EDT Office Visit Gynecology/Obstetrics [facility] [address] [place] [address] Cecy Garcia PA-C [address] [place] [address] 07/10/2023 4:30 PM EDT Office Visit Gynecology/Obstetrics [facility] [address] [place] [address] Cecy Garcia PA-C [address] [place] [address] 07/24/2023 4:30 PM EDT Office Visit Gynecology/Obstetrics [facility] [address] [place] [address] Cecy Garcia PA-C [address] [place] [address] 07/31/2023 2:30 PM EDT Office Visit Gynecology/Obstetrics [facility] [address] [place] [address] Cyril Claire MD [address] [place] [address] Martin, Non Stress Tests [facility] [address] [place] [address] 08/07/2023 2:30 PM EDT Office Visit Gynecology/Obstetrics [facility] [address] [place] [address] Char Jama CRNP [address] [place] [address] Martin, Non Stress Tests Peter [address] [place] [address] Health Maintenance Due Date Last Done Comments [...] filedocumented as of this encounter Care Teams Lighting Adviser Relationship Specialty Start Date End Date Aruna Valero DO [address] [place] [address] [place] [address] PCP - General Internal Medicine 02/07/16 documented as of this encounter
--- OUTSIDE RECORDS SUMMARY | 2023-08-04 06:32 | External Medical Summary | Summary of Care ---
Author Name Unknown Organization [facility] Address [address] [facility] [address] Phone [phone] Care Team Providers Care Senior Test Engineer Name Role Phone Aruna Valero Primary Care Provider Encounter Details Date Type Department Care Team (Late st Contact Info) Description 05/02/2023 Telephone Gynecology/Obstetrics [facility] [address] [place] [address] Esperanza Ray [facility] [address] [place] [address] Allergies No known active allergiesdocumented [...] money to get more. Never true 07/09/2022 [place] Depression Scale Answer Date Recorded [place] Depression Scale Total 3 01/08/2023 The thought [...] 05/16/2023 8:15 AM EST Office Visit Gynecology/Obst[facility]s [facility] [address] [place] [address] Char Jama CRNP [address] [place] [address] 05/16/2023 8:40 AM EST Laboratory Laboratory, [facility] [address] [place] [id number] [facility] [address] [place] [address] 05/29/2023 4:30 PM EST Office Visit Gynecology/Obstetrics [facility] [address] [place] [address] Cecy Garcia PA-C [address] [place] [address] 06/12/2023 4:30 PM EDT Office Visit Gynecology/Obstetrics [facility] [address] [place] [address] Cecy Garcia PA-C [address] [place] [address] 06/26/2023 4:30 PM EDT Office Visit Gynecology/Obstetrics [facility] [address] [place] [address] Cecy Garcia PA-C [address] [place] [address] 07/10/2023 4:30 PM EDT Office Visit Gynecology/Obstetrics [facility] [address] [place] [address] Cecy Garcia PA-C [address] [place] [address] 07/24/2023 4:30 PM EDT Office Visit Gynecology/[facility]st[facility]s [facility] [address] [place] [address] Cecy Garcia PA-C [address] [place] [address] 07/31/2023 2:30 PM EDT Office Visit Gynecology/Obstetrics [facility] [address] [place] [address] Cyril Claire MD [address] [place] [address] Martin Non Stress Tests [facility] [address] [place] [address] 08/07/2023 2:30 PM EDT Office Visit Gynecology/Obstetrics [facility] [address] [place] [address] Char Jama CRNP [address] [place] [address] Salazar, Non Stress Tests [facility] [address] [place] [address] Health Maintenance Due Date Last Done Comments [...] filedocumented as of this encounter Care Teams Senior Test Engineer Relationship Specialty Start Date End Date Aruna Valero DO [address] [place] [address] [place] [id number] PCP - General Internal Medicine 02/07/16 documented as of this encounter
--- OUTSIDE RECORDS SUMMARY | 2023-08-04 06:32 | External Medical Summary ---
Author Name Unknown Address Unknown Organization [id number]:[facility] [address] [facility]. [place] [address] Laboratory Report Ordering Provider Test Date Status CHELSEYBACKER 05/16/2023 09:01:16 Final Observation Date Value Abnormality Reference (Units ) Status SYNC LEUKOCYTES IN BLOOD BY AUTOMATED COUNT 05/16/2023 09:01:16 12.00 Above high normal 4.00-10.80 (K/uL) Final Segs 05/16/2023 09:01:16 76.6 Above high normal 40.0-75.0 (%) Final Lymphs % 05/16/2023 09:01:16 18.3 18.0-42.0 (%) Final Monos 05/16/2023 09:01:16 3.8 1.0-11.0 (%) Final Eosinophils 05/16/2023 09:01:16 0.4 0.0-6.0 (%) Final Basos 05/16/2023 09:01:16 0.1 0.0-2.0 (%) Final Immature Granulocyte, Percent 05/16/2023 09:01:16 0.8 0.0-2.0 (%) Final Absolute Segs 05/16/2023 09:01:16 9.18 Above high normal 1.80-7.70 (K/uL) Final Lymphs, absolute 05/16/2023 09:01:16 2.20 1.00-4.80 (K/ul) Final Monos, Abs 05/16/2023 09:01:16 0.46 0.00-1.10 (K/uL) Final Eos, Abs 05/16/2023 09:01:16 0.05 0.00-0.70 (K/uL) Final Basos, Abs 05/16/2023 09:01:16 0.01 0.00-0.20 (K/uL) Final Immature Granulocytes, Number 05/16/2023 09:01:16 0.10 0.00-0.20 (K/uL) Final Performing Location [facility] - [facility] [address] [facility] [address]
--- OUTSIDE RECORDS SUMMARY | 2023-08-04 06:32 | External Medical Summary | Summary of Care ---
Author Name Unknown Organization [facility] Address [address] [place] [address] Phone [phone] Care Team Providers Care Assistant Shift Supervisor Name Role Phone Aruna Valero Primary Care Provider [phone] Reason for Visit * Reason Onset Date Comments MyCode Consent 04/20/2021 Encounter Details Date Type Department Care Team (Late st Contact Info) Description 04/20/2021 Orders Only Outcomes Research Department [address] [place] [address] Lisseth Soler NA/[facility] MyCode Research Other*[id number]* Allergies No known active allergiesdocumented as of this encounter (statuses as of 04/23/2023) Medications Medication Sig Dispensed Refills Start Date End Date Status Vitamin 27-0.8 MG Oral Tablet Take by mouth. 0 Active clobetasol propionate (TEMOVATE) 0.05 % ointment Apply topically to affected area 2 times a day. To affected area for up to two weeks. 60 g 1 02/07/2016 01/07/2023 Discontinued (Medication List Clean Up) documented as of this encounter (statuses as of 04/23/2023) Active Problems Problem Noted Date Diagnosed Date Supervision of other normal , antepartu m 01/08/2023 Herpes simplex infection of genitourinary system 04/20/2021 Obesity, Class II, BMI 35-39.9, isolated (see ac tual BMI) 05/10/2017 Overview: Early glucola Serial growth u/s NST weekly at 37w Eczema 02/07/2016 Irritable bowel syndrome with constipation 02/06 Comments Yes documented as of this encounter (statuses as of 04/23/2023) Resolved Problems Problem Noted Date Diagnosed Date [...] as of this encounter (statuses as of 04/23/2023) Immunizations Name Administration Dates Next Due DTaP [...] money to get more. Never true 07/09/2022 [place] Depression Scale Answer Date Recorded [place] Depression Scale Total 3 01/08/2023 The thought of harming myself has occurred to me . Never 01/08/2023 Comments Yes Sex and Gender Information Value Date Recorded Sex Assigned at Female 03/09/2019 2:54 PM EST Gender Identity Female 03/09/2019 2:54 PM EST Sexual Orientation Straight 03/09/2019 2: 54 PM EST Job Start Date Occupation Industry Not on file Not on file Not on file documented as of this encounter Progress Notes * Lisseth Soler CHRA - 04/20/2021 3:07 PM EST MyCode Consent Documentation Laura Thompson provided consent/authorization to participate in the MyCode Project. documented in this encounter Plan of Treatment Upcoming Encounters Date Type Department Care Team (Late st Contact Info) Description 05/01/2023 3:00 PM EST Imaging Radiology [facility] 2nd Floor, [place] [address] [place] [address] 05/01/2023 4:30 PM EST Office Visit Gynecology/Obstetrics [facility] [address] [place] [address] Cecy Garcia PA-C [address] [place] [address] 05/29/2023 4:30 PM EST Office Visit Gynecology/Obstetrics [facility] [address] [place] [address] Cecy Garcia PA-C [address] [place] [address] 06/12/2023 4:30 PM EDT Office Visit Gynecology/Obstetrics [facility] [address] [place] [address] Cecy Garcia PA-C [address] [place] [address] 06/26/2023 4:30 PM EDT Office Visit Gynecology/Obstetrics [facility] [address] [place] [address] Cecy Garcia PA-C [address] [place] [address] 07/10/2023 4:30 PM EDT Office Visit Gynecology/Obstetrics [facility] [address] [place] [address] Cecy Garcia PA-C [address] [place] [address] 07/24/2023 4:30 PM EDT Office Visit [facility]necology[facility]Obst[facility]s [facility] [address] [place] [address] Cecy Garcia PA-C [address] [place] [address] 07/31/2023 2:30 PM EDT Office Visit Gynecology/Obstetrics [facility] [address] [place] [address] Cyril Claire MD [address] [place] [address] Martin, Non Stress Tests [facility] [address] [place] [address] 08/07/2023 2:30 PM EDT Office Visit Gynecology/Obstetrics [facility] [address] [place] [address] Char Jama CRNP [address] [place] [address] Salazar Non Stress Tests [facility] [address] [place] [address] Health Maintenance Due Date Last Done Comments [...] this encounter Visit Diagnoses Diagnosis MyCode Research Other*[id number]- Primary documented in this encounter Care Teams Assistant Shift Supervisor Relationship Specialty Start Date End Date Aruna Valero DO [address] [place] [address] [place] [phone] PCP - General Internal Medicine 02/07/16 documented as of this encounter
--- OUTSIDE RECORDS SUMMARY | 2023-08-04 06:32 | External Medical Summary ---
Author Name Unknown Address Unknown Organization K01:[facility] [place] [address] [place] [address] Laboratory Report Ordering Provider Test Date Status CHELSEYBACKER 05/16/2023 09:01:16 Final Observation Date Value Abnormality Reference (Units ) Status WBC, Total 05/16/2023 09:01:16 12.00 Above high normal 4 .00-10.80 (K/uL) Final RBC 05/16/2023 09:01:16 4.07 3.85-5.15 (M/uL) Final Hemoglobin 05/16/2023 09:01:16 12.2 12.0-15.3 (g/dL) Final Anemia reflex testing trigge rs on a HGB < 12.0 for Females and HGB < 13.0 for Males in accordance with the WHO Anemia Guidelines
Anemia reflex testing triggers on a HGB < 12.0 for Females and HGB < 13.0 for Males in accordance with the WHO Anemia Guidelines HCT 05/16/2023 09:01:16 36.7 36.0-45.2 (%) Final MCV 05/16/2023 09:01:16 90.2 81.5-97.5 (fL) Final MCH 05/16/2023 09:01:16 30.0 27.0-34.0 (pg) Final MCHC 05/16/2023 09:01:16 33.2 32.0-36.0 (g/dL) Final RDW 05/16/2023 09:01:16 12.9 11.5-15.5 (%) Final Platelets 05/16/2023 09:01:16 376 140-400 (K /uL) Final MPV 05/16/2023 09:01:16 10.0 6.6-11.1 ( fL) Final Nucleated erythrocytes/100 leukocytes [Ratio] in Blood by Automated count 05/16/2023 09:01:16 0 <=0 (/100 WBCs) Fi [facility] Performing Location LABORATORY [facility] - [address] [facility] [address]
--- OUTSIDE RECORDS SUMMARY | 2023-08-04 06:32 | External Medical Summary ---
Author Name Unknown Address Unknown Organization [id number]:LABORATORY [place] [address] - [address] [place] [address] Laboratory Report Ordering Provider Test Date Status STEPHANIE BARBOSA 05/16/2023 09:01:16 Final Observation Date Value Abnormality Reference (Units ) Status Glucose [Moles/volume] in Serum or Plasma --1 hour post 50 g glucose PO 05/16/2023 09:01:16 130 Above high normal 70-129 (mg/dL) Final Performing Location LABORATORY [facility] [place] [address] - [address] [place] [address]
--- OUTSIDE RECORDS SUMMARY | 2023-08-04 06:32 | External Medical Summary ---
Author Name Unknown Address Unknown Organization K01:[facility]ORY [facility] [place] - [address] [place] [address] Laboratory Report Ordering Provider Test Date Status CHELSEYJACKIESAHARA 05/16/2023 09:01:16 Final Observation Date Value Abnormality Reference (Units ) Status Treponema pallidum Ab [Presence] in Serum by Immunoassay 05/16/2023 09:01:16 Nonreactive Nonreactive Final No serologic evidence of syp hilis. No additional testing clinicially indicated at this time. Consider repeat testing in 2-4 weeks if acute or primary syphilis is suspected. Performing Location LAB[facility]ATORY [facility] [place] - [address] [place] [address]
--- OUTSIDE RECORDS SUMMARY | 2023-08-04 06:32 | External Medical Summary | Summary of Care ---
Author Name Unknown Organization [facility] Address [address] [facility] [place] [address] Phone [phone] Care Team Providers Care Fitness Director Name Role Phone Aruna Valero Primary Care Provider [phone] Reason for Visit * Reason Comments Return Visit Encounter Details Date Type Department Care Team (Late st Contact Info) Description 05/01/2023 3:00 PM EST Office Visit Gynecology/Obstetri [facility] [address] [place] [address] BackerEcho CRNP [address] [place] [address] Supervision of other normal , antepartum*; Obesity, Class II, BMI 35-39.9, isolated (see actual BMI); Herpes simplex infection of genitourinary system Allergies No known active allergiesdocumented as of this encounter (statuses as of 05/01/2023) Medications Medication Sig Dispensed Refills Start Date End Date Status Vitamin 27-0.8 MG Oral Tablet Take by mouth. 0 Active documented as of this encounter (statuses as of 05/01/2023) Active Problems Problem Noted Date Diagnosed Date [...] as of this encounter (statuses as of 05/01/2023) Resolved Problems Problem Noted Date Diagnosed Date [...] as of this encounter (statuses as of 05/01/2023) Immunizations Name Administration Dates Next Due DTaP [...] money to get more. Never true 07/09/2022 [place] Depression Scale Answer Date Recorded [place] Depression Scale Total 3 01/08/2023 The thought [...] Reading Time Taken Comments Blood Pressure 118/64 05/01/2023 2:59 PM EST previous result entered in error Pulse - - Temperature - - Respiratory Rate - - Oxygen Saturation - - Inhaled Oxygen Concentration - - Weight 99.4 kg (219 lb 3.2 oz) 05/01/2023 2:59 PM EST Height 162.6 cm (5' 4") 05/01/2023 2:59 PM EST Body Mass Index 37.63 05/01/2023 2:59 PM EST documented in this encounter Progress Notes * Echo Feliz CRNP - 05/01/2023 2:53 PM EST 25w2d + movement. No ctx/bleeding. 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 This lasted a few seconds. Saw school nurse, BP was normal. Discussed changes in BP/circulation in ; ensure adequate hydration and avoid prolonged standing. Growth scan today, results in process. Labs with next visit, 2 week return. JAI Corrales documented in this encounter Nursing Notes * Ariana Starr RN - 05/01/2023 3:01 PM EST Patient here for AIXA 25w2d No concerns 28 labs pended Ariana Starr RN documented in this encounter Plan of Treatment Upcoming Encounters Date Type Department Care Team (Late st Contact Info) Description 05/29/2023 4:30 PM EST Office Visit Gynecology/Obstetrics [facility] [address] [place] [address] Cecy Garcia PA-C [address] [place] [address] 06/12/2023 4:30 PM EDT Office Visit Gynecology/Obstetrics [facility] [address] [place] [address] Cecy Garcia PA-C [address] [place] [address] 06/26/2023 4:30 PM EDT Office Visit Gynecology/Obstetrics [facility] [address] [place] [address] Cecy Garcia PA-C [address] [place] [address] 07/10/2023 4:30 PM EDT Office Visit Gynecology/Obstetrics [facility] [address] [place] [address] Cecy Garcia PA-C [address] [place] [address] 07/24/2023 4:30 PM EDT Office Visit Gynecology/Obstetrics [facility] [address] [place] [address] Cecy Garcia PA-C [address] [place] [address] 07/31/2023 2:30 PM EDT Office Visit Gynecology/Obstetrics [facility] [address] [place] [address] Cyril Claire MD [address] [place] [address] Mela Salazar [facility] [address] [place] [address] 08/07/2023 2:30 PM EDT Office Visit Gynecology/Obstetrics [facility] [address] [place] [address] Char Jama CRNP [address] [place] [address] Salazar, Non Stress Tests Peter [address] [place] [address] Scheduled Orders Name Type Priority Associated Diagnoses Orde r Schedule SYPHILIS ANTIBODY SCREEN WITH REFLEX TO RPR Lab Routine Supervision of other normal , antepartum Expected: 05/15/2023 (Approximate), Expires: 05/01/2024 CBC WITH WBC DIFFERENTIAL AND ANEMIA REFLEX WORKUP Lab Routine Supervision of other normal , antepartum Expected: 05/15/2023 (Approximate), Expires: 05/01/2024 50-G GESTATIONAL GLUCOSE, 1 HOUR Lab Routine Supervision of other normal , antepartum Expected: 05/15/2023 (Approximate), Expires: 05/01/2024 Health Maintenance Due Date Last Done Comments [...] system documented in this encounter Care Teams Fitness Director Relationship Specialty Start Date End Date Aruna Valero DO [address] [place] [address] [place] [phone] PCP - General Internal Medicine 02/07/16 documented as of this encounter
--- OUTSIDE RECORDS SUMMARY | 2023-08-04 06:33 | External Medical Summary | Summary of Care ---
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 0 Active clobetasol propionate (TEMOVATE) 0.05 % ointment Apply topically to affected area 2 times a day. To affected area for up to two weeks. 60 g 1 02/07/2016 01/07/2023 Discontinued (Medication List Clean Up) Ibuprofen 600 MG Oral Tablet (Motrin) Take by mouth 600 mg every 6 hours as needed for Fever (Temp Greater than ) or Pain. 0 01/07/2023 Discontinued (Medication List Clean Up) Fluconazole 150 MG Oral Tablet (Diflucan)Indicat ions:Yeast infection TAKE ONE TABLET BY MOUTH ONCE FOR 1 DOSE MAY REPEAT IN 3 DAYS IF CONTINUED SYMPTOMS 2 Tablet 0 02/13/2022 01/07/2023 Discontinued (Medication List Clean Up) documented as of this encounter (statuses as of 03/08/2023) Active Problems Problem Noted Date Diagnosed Date Supervision of other normal , antepartu m 01/08/2023 Herpes simplex infection of genitourinary system 04/20/2021 Obesity, Class II, BMI 35-39.9, isolated (see ac tual BMI) 05/10/2017 Overview: Early glucola Serial growth u/s NST weekly at 37w Eczema 02/07/2016 Irritable bowel syndrome with constipation 02/06 documented as of this encounter (statuses as of 03/08/2023) Resolved Problems Problem Noted Date Diagnosed Date [...] for age 0710/05/2009 02/07/2016 Other atopic dermatitis 12/11/2007/10/2015 Overview: ICD-10 update of inactive term documented as of this encounter (statuses as of 03/08/2023) Immunizations Name Administration Dates Next Due DTaP Dipth/Tet/Acell Pertussis (Infanrix), Peds 12/14/2002,07/05/1998,1997,05/25,1997 H1N1 2009 Influenza, IM 02/01/2009 HPV Vaccine, 4-Valent 02/25/2013 Hepatitis B, 0-19 yrs 1997,1997,10/0 06/1996 IPV - Polio Virus Vaccine (Inact) 2002,07/05/1998,1997,03/23 MMR - Measles/Mumps/Rubella Vaccine 12/14/2002,0 07/05/1998 Meningococcal Conjugate Vacc ine (Menactra/Menveo) 07/06/2014,10/05/2008 PPD 04/20/2021 SEASONAL INFLUENZA, PF, 6 M & Above, IM , (FLULAVAL or FLUZONE) 12/15/2018,01/14/2017 Seasonal Influenza Intranasal 12/15/2008, 008,02/05/2007 Seasonal Influenza, Quadriva lent, No Preserve, IM [...] money to get more. Never true 07/09/2022 [place] Depression Scale Answer Date Recorded [place] Depression Scale Total 3 01/08/2023 The thought of harming myself has occurred to me . Never 01/08/2023 Sex and Gender Information Value Date Recorded Sex Assigned at Female 03/09/2019 2:54 PM EST Gender Identity Female 03/09/2019 2:54 PM EST Sexual Orientation Straight 03/09/2019 2: 54 PM EST Job Start Date Occupation Industry Not on file Not on file Not on file documented as of this encounter Last Filed Vital Signs Vital Sign Reading Time Taken Comments Blood Pressure - - Pulse - - Temperature - - Respiratory Rate - - Oxygen Saturation - - Inhaled Oxygen Concentration - - Weight - - Height 162.6 cm (5' 4") 12/07/2022 1:42 PM EDT Body Mass Index - - documented in this encounter Progress Notes * Cyril Claire MD - 03/08/2023 4:23 PM EST ERROR documented in this encounter Nursing Notes * Cammie Diane LPN - 12/07/2022 1:41 PM EDT Patient identified Laura Thompson by name and date of . Patient here for yearly exam. Complaints: none Last pap: 12/29/20 Last Mammogram: na Last Dexa: nna Last Colonoscopy: na Type of Contraception: none Pt here for chlamydia screen. no Have you heard about the Gardasil Vaccine? no Would you be interested in discussing this with your provider? no Does the patient have an advance directed? No, Advance Directive brochure offered, patient declined. [facility] is a way you can talk to your provider online through e-mail. May I activate it for you? ALREADY ACTIVE Do you need any refills while you are here? no Cammie Diane LPN 12/07/2022 1:41 PM documented in this encounter Plan of Treatment Upcoming Encounters Date Type Department Care Team (Late st Contact Info) Description 04/02/2023 2:15 PM EST Imaging Radiology [facility] 2nd [facility] [address] [facility] [place] [address] 04/02/2023 4:15 PM EST Office Visit Gynecology/Obstetrics [facility] [address] [facility] [place], [place] [address] Esperanza Ray, CN [address] [place] [address] 05/01/2023 4:30 PM EST Office Visit Gynecology/Obstetrics [facility] [address] [facility] [place] [address] Cecy Garcia PA-C [address] [place] [address] 05/29/2023 4:30 PM EST Office Visit Gynecology/Obstetrics [facility] [address] [facility] [place] [address] Cecy Garcia PA-C [address] [place] [address] Health Maintenance Due Date Last Done Comments [...] as of this encounter Visit Diagnoses Diagnosis Annual physical exam- Primary Routine general medical examination at a health care facility documented in this encounter Care Teams Market Developer Relationship Specialty Start Date End Date Aruna Valero DO [address] [place] [address] [place] [address] PCP - General Internal Medicine 02/07/16 documented as of this encounter
--- OUTSIDE RECORDS SUMMARY | 2023-08-04 06:33 | External Medical Summary | Summary of Care ---
Author Name Unknown Organization [facility] Address [address] [facility] [place] [address] Phone [phone] Care Team Providers Care Content Management Consultant Name Role Phone Aruna Valero Primary Care Provider Reason for Visit * Reason Comments Outpatient Testing Encounter Details Date Type Department Care Team (Late st Contact Info) Description 01/28/2023 8:40 AM EDT Laboratory Laboratory, [facility] [phone] [facility] 132 [place] [address] Supervision of other normal , antepartum Allergies No known active allergiesdocumented as of this encounter (statuses as of 02/04/2023) Medications Medication Sig Dispensed Refills Start Date End Date Status Vitamin 27-0.8 MG Oral Tablet Take by mouth. 0 Active documented as of this encounter (statuses as of 02/04/2023) Active Problems Problem Noted Date Diagnosed Date [...] as of this encounter (statuses as of 02/04/2023) Resolved Problems Problem Noted Date Diagnosed Date [...] as of this encounter (statuses as of 02/04/2023) Immunizations Name Administration Dates Next Due DTaP [...] money to get more. Never true 07/09/2022 [place] Depression Scale Answer Date Recorded [place] Depression Scale Total 3 01/08/2023 The thought [...] Care Team (Late st Contact Info) Description 02/06/2023 2:00 PM EST [facility] [address] [place] [address] [facility] [address] [place] [address] 02/06/2023 2:15 PM EST Office Visit Gynecology/Obstetrics [facility] [address] [place] [address] Char Jama CRNP [address] [place] [address] Pending Results Name Type Priority Associated Diagnoses Date /Time QNATAL ADVANCED ([facility]) Lab Routine Supervision of other normal , antepartum 01/28/2023 4:09 PM EDT Health Maintenance Due Date Last Done Comments [...] antepartum documented in this encounter Care Teams Content Management Consultant Relationship Specialty Start Date End Date Aruna Valero DO [address] [place] [address] [place] [phone] PCP - General Internal Medicine 02/07/16 documented as of this encounter
--- OUTSIDE RECORDS SUMMARY | 2023-08-04 06:33 | External Medical Summary | Summary of Care ---
Author Name Unknown Organization [facility] Address [address] [facility] [place] [address] Phone [phone] Care Team Providers Care Cnc Technician Name Role Phone Aruna Valero DO Primary Care Provider Reason for Visit * Reason Onset Date Comments Test Results 02/01/2023 Encounter Details Date Type Department Care Team (Late st Contact Info) Description 02/01/2023 Telephone Family Medicine [address] [phone] Aruna Valero [address] [place] [id number] Test Results Allergies No known active allergiesdocumented [...] money to get more. Never true 07/09/2022 [place] Depression Scale Answer Date Recorded [place] Depression Scale Total 3 01/08/2023 The thought [...] encounter Miscellaneous Notes * Telephone Encounter - Eugenio Law RN - 02/04/2023 10:41 AM EST Patient returned call, patient aware and verbalizes understanding Eugenio Law RN * Telephone Encounter - Lluvia Mcallister RN - 02/04/2023 9:41 AM EST left message for patient to call office * Telephone Encounter - Char Jama CRNP - 02/04/2023 9:20 AM EST I am assuming this pt is asking for Qnatal results, though the original message is very vague. Theycan take up to 2 weeks to come back, and she just had it done 01/28. It is still in process. * Telephone Encounter - Maryjane Fulton OSA - 02/01/2023 4:32 PM EDT Who is Requesting Test Results: [facility] Primary Care Provider : Aruna Valero DO Tests Results Requested : labs Date of Test : 01/28 Location of Test: [facility] Ordering Provider: Char Jama CRNP Callback Number: [phone] Patient has been made aware that the turnaround time for test results are typically as follows: Laboratory results = within 2-3 days ([facility]), 3-5 days ([facility], ie. [facility]) Urine Cultures = within 2-3 days depending on growth within the culture Pathology results (biopsy results/PAP) = 1-2 weeks Radiology results = about 1 week Cologuard results = within 2 weeks from the shipment date COVID testing = about 24 hours documented in this encounter Plan of Treatment Upcoming Encounters Date Type Department Care Team (Late st Contact Info) Description 02/06/2023 2:00 PM EST Laboratory Laboratory, [facility] [address] [place] [phone] [facility] [address] [place] [address] 02/06/2023 2:15 PM EST Office Visit Gynecology/Obstetrics [facility] [address] [place] [address] Char Jama CRNP [address] [place] [address] Health Maintenance Due Date Last Done Comments [...] filedocumented as of this encounter Care Teams Cnc Technician Relationship Specialty Start Date End Date ValeroAruna purvis DO [address] [place] [address] [place] [phone] PCP - General Internal Medicine 02/07/16 documented as of this encounter
--- OUTSIDE RECORDS SUMMARY | 2023-08-04 06:33 | External Medical Summary | Summary of Care ---
Author Name Unknown Organization [facility] Address [address] [facility] [place] [address] Phone [phone] Care Team Providers Care Tanning Salon Attendant Name Role Phone Aruna Valero Primary Care Provider [phone] Reason for Visit * Reason Comments Return Visit Encounter Details Date Type Department Care Team (Latest Contact Info) Description 03/06/2023 4:30 PM EST Office Visit Gynecology/Obstetric s [facility] [address] [place] [address] Cecy Garcia PA-C [address] [place] [address] Supervision of other normal , antepartum*; Obesity, Class II, BMI 35-39.9, isolated (see actual BMI); Herpes simplex infection of genitourinary system Allergies No known active allergiesdocumented as of this encounter (statuses as of 03/06/2023) Medications Medication Sig Dispensed Refills Start Date End Date Status Vitamin 27-0.8 MG Oral Tablet Take by mouth. 0 Active documented as of this encounter (statuses as of 03/06/2023) Active Problems Problem Noted Date Diagnosed Date [...] as of this encounter (statuses as of 03/06/2023) Resolved Problems Problem Noted Date Diagnosed Date [...] as of this encounter (statuses as of 03/06/2023) Immunizations Name Administration Dates Next Due DTaP [...] money to get more. Never true 07/09/2022 [place] Depression Scale Answer Date Recorded [place] Depression Scale Total 3 01/08/2023 The thought [...] Sign Reading Time Taken Comments Blood Pressure 118/68 03/06/2023 4:27 PM EST Pulse - - Temperature - - Respiratory Rate - - Oxygen Saturation - - Inhaled Oxygen Concentration - - Weight 98.1 kg (216 lb 3.2 oz) 03/06/2023 4:27 P M EST Height 162.6 cm (5' 4") 03/06/2023 4:27 PM EST Body Mass Index 37.11 03/06/2023 4:27 PM EST documented in this encounter Progress Notes * Cecy Garcia PA-C - 03/06/2023 4:45 PM EST 17w2d History of headaches, has been experiencing increase in headaches. Tries to avoid Tylenol when she can. Reviewed Magnesium 400 mg daily and Riboflavin 400 mg daily. Counseled on MSAFP for ONTD, she declines. Denies bleeding, leaking. No quickening. Anatomy with AIXA in 3 weeks Cecy Garcia PA-C documented in this encounter Nursing Notes * Ariana Starr RN - 03/06/2023 4:30 PM EST Patient here for AIXA visit 17w2d Having CORREA that causes vomiting. No bleeding / leaking documented in this encounter Plan of Treatment Upcoming Encounters Date Type Department Care Team (Late st Contact Info) Description 04/02/2023 2:15 PM EST Imaging Radiology [facility] 2nd [facility] 132 [facility] [place] [address] 04/02/2023 4:15 PM EST Office Visit Gynecology/Obstetrics [facility] 132 [facility] [place] [address] Esperanza Ray CNM [address] [place] [address] 05/01/2023 4:30 PM EST Office Visit Gynecology/Obstetrics [facility] [address] [place] [address] Cecy Garcia PA-C [address] [place] [address] 05/29/2023 4:30 PM EST Office Visit Gynecology/Obstetrics [facility] [address] [place] [address] Cecy Garcia PA-C [address] [place] [address] Scheduled Orders Name Type Priority Associated Diagnoses Orde r Schedule US PREG SINGLE/1ST GEST, 14 WEEKS OR LATER Medical Imaging Routine Supervision of other normal , antepartum Expected: 04/02/2023, Expires: 04/06/2024 Health Maintenance Due Date Last Done Comments [...] system documented in this encounter Care Teams Tanning Salon Attendant Relationship Specialty Start Date End Date Aruna Valero DO [address] [place] [address] [place] [phone] PCP - General Internal Medicine 02/07/16 documented as of this encounter
--- OUTSIDE RECORDS SUMMARY | 2023-08-04 06:33 | External Medical Summary | Summary of Care ---
Author Name Unknown Organization [facility] Address [address] [facility] [place] [address] Phone [phone] Care Team Providers Care Lurer Name Role Phone Aruna Valero Primary Care Provider Reason for Visit * Reason Comments Return Visit Encounter Details Date Type Department Care Team (Late st Contact Info) Description 04/02/2023 4:15 PM EST Office Visit Gynecology/Obstetri [facility] 132 [facility] [place] [address] Esperanza Ray, [facility] 400 [facility] [place] [address] Encounter for supervision of other normal , second trimester*; Obesity, Class II, BMI 35-39.9, isolated (see actual BMI); Herpes simplex infection of genitourinary system; Supervision of other normal , antepartum; Class 2 obesity Allergies No known active allergiesdocumented as of this encounter (statuses as of 04/02/2023) Medications Medication Sig Dispensed Refills Start Date End Date Status Vitamin 27-0.8 MG Oral Tablet Take by mouth. 0 Active documented as of this encounter (statuses as of 04/02/2023) Active Problems Problem Noted Date Diagnosed Date [...] as of this encounter (statuses as of 04/02/2023) Resolved Problems Problem Noted Date Diagnosed Date [...] as of this encounter (statuses as of 04/02/2023) Immunizations Name Administration Dates Next Due DTaP [...] money to get more. Never true 07/09/2022 [place] Depression Scale Answer Date Recorded [place] Depression Scale Total 3 01/08/2023 The thought [...] documented in this encounter Progress Notes * Esperanza Ray CNM - 04/02/2023 4:14 PM EST [...] isolated (see actual BMI) Plan: -Growth US [id number] (A60.00) Herpes simplex infection of genitourinary system Plan: -Valtrex suppression to start at 36 weeks (Z34.80) Supervision of other normal , antepartum Plan: - recommended flu vaccine; patient declined. - had anatomy US - reviewed with patient that results were WNL - RTO in 4 weeks Esperanza Ray CNM documented in this encounter Nursing Notes * Cammie Diane LPN - 04/02/2023 4:06 PM EST 21w1d Anatomy today documented in this encounter Plan of Treatment Upcoming Encounters Date Type Department Care Team (Late st Contact Info) Description 05/01/2023 3:00 PM EST Imaging Radiology [facility] 2nd Floor, [place] [address] [place] [address] 05/01/2023 4:30 PM EST Office Visit Gynecology/Obstetrics [facility] [address] [place] [address] Cecy Garcia PA-C [address] [place] [address] 05/29/2023 4:30 PM EST Office Visit Gynecology/Obstetrics [facility] [address] [place] [address] Cecy Garcia PA-C [address] [place] [address] 06/12/2023 4:30 PM EDT Office Visit Gynecology/Obstetrics [facility] [address] [place] [address] Cecy Garcia PA-C [address] [place] [address] 06/26/2023 4:30 PM EDT Office Visit Gynecology/Obstetrics [facility] [address] [place] [address] Cecy Garcia PA-C [address] [place] [address] 07/10/2023 4:30 PM EDT Office Visit Gynecology/Obstetrics [facility] [address] [place] [address] Cecy Garcia PA-C [address] [place] [address] 07/24/2023 4:30 PM EDT Office Visit Gynecology/Obstetrics [facility] [address] [place] [address] Cecy Garcia PA-C [address] [place] [address] 07/31/2023 2:30 PM EDT Office Visit Gynecology/Obstetrics [facility] [address] [place] [address] Cyril Claire MD [address] [place] [address] Mela Salazar [facility] [address] [place] [address] 08/07/2023 2:30 PM EDT Office Visit Gynecology/Obstetrics [facility] [address] [place] [address] Char Jama CRNP [address] [place] [address] [facility] [address] [place] [address] Scheduled Orders Name Type Priority Associated Diagnoses Orde r Schedule US PREG FOLLOW-UP EACH FETUS Medical Imaging Routine Class 2 obesity Encounter for supervision of other normal , second trimester Expected: 04/02/2023, Expires: 05/03/2024 Health Maintenance Due Date Last Done Comments [...] other normal , antepartum Class 2 obesity documented in this encounter Care Teams Lurer Relationship Specialty Start Date End Date Aruna Valero DO [address] [place] [address] [place] [phone] PCP - General Internal Medicine 02/07/16 documented as of this encounter
--- OUTSIDE RECORDS SUMMARY | 2023-08-04 06:33 | External Medical Summary | Summary of Care ---
Author Name Unknown Organization [facility] Address [address] [facility] [place] [address] Phone [phone] Care Team Providers Care Mortgage Originator Name Role Phone Aruna Valero Primary Care Provider Reason for Visit * Reason Comments Return Visit Encounter Details Date Type Department Care Team (Latest Contact Info) Description 02/06/2023 2:15 PM EST Office Visit Gynecology/Obstetric s [facility] [address] [place] [address] Char Jama CRNP [address] [place] [address] Supervision of other normal , antepartum*; Obesity, Class II, BMI 35-39.9, isolated (see actual BMI); Herpes simplex infection of genitourinary system Allergies No known active allergiesdocumented as of this encounter (statuses as of 02/06/2023) Medications Medication Sig Dispensed Refills Start Date End Date Status Vitamin 27-0.8 MG Oral Tablet Take by mouth. 0 Active documented as of this encounter (statuses as of 02/06/2023) Active Problems Problem Noted Date Diagnosed Date [...] as of this encounter (statuses as of 02/06/2023) Resolved Problems Problem Noted Date Diagnosed Date [...] as of this encounter (statuses as of 02/06/2023) Immunizations Name Administration Dates Next Due DTaP [...] money to get more. Never true 07/09/2022 [place] Depression Scale Answer Date Recorded [place] Depression Scale Total 3 01/08/2023 The thought [...] Sign Reading Time Taken Comments Blood Pressure 120/68 02/06/2023 2:01 PM EST Pulse - - Temperature - - Respiratory Rate - - Oxygen Saturation - - Inhaled Oxygen Concentration - - Weight 99.1 kg (218 lb 6.4 oz) 02/06/2023 2:01 P M EST Height 162.6 cm (5' 4") 02/06/2023 2:01 PM EST Body Mass Index 37.49 02/06/2023 2:01 PM EST documented in this encounter Progress Notes * Char Jama CRNP - 02/06/2023 2:53 PM EST 13w2d Had a bad headache yesterday, relieved by Tylenol. Some nausea, not much vomiting any longer. No vaginal bleeding. Low risk Qnatal. Completing early glucola today. JAI Bray * Dana Lee LPN - 02/06/2023 2:15 PM EST 13w2d Pt had CORREA yesterday with blurry vision, only had relief with tylenol. Pt reports hx of tension CORREA's. Pt denies any concerns. documented in this encounter Plan of Treatment Upcoming Encounters Date Type Department Care Team (Late st Contact Info) Description 03/06/2023 4:30 PM EST Office Visit Gynecology/Obstetrics [facility] [address] [place] [address] Cecy Garcia PA-C [address] [place] [address] 04/02/2023 2:15 PM EST Imaging Radiology [facility] 2nd [facility] [address] [place] [address] 04/02/2023 4:15 PM EST Office Visit Gynecology/Obstetrics [facility] [address] [facility] [place] [address] Esperanza Ray, [facility] [address] [place] [address] 05/01/2023 4:30 PM EST Office Visit Gynecology/Obstetrics [facility] [address] [facility] [place] [address] Cecy Garcia PA-C [address] [place] [address] 05/29/2023 4:30 PM EST Office Visit Gynecology/Obstetrics [facility] [address] [facility] [place] [address] Cecy Garcia PA-C [address] [place] [address] Health Maintenance Due Date Last Done Comments [...] system documented in this encounter Care Teams Mortgage Originator Relationship Specialty Start Date End Date Aruna Valero DO [address] [place] [address] [place] [phone] PCP - General Internal Medicine 02/07/16 documented as of this encounter
--- OUTSIDE RECORDS SUMMARY | 2023-08-04 06:33 | External Medical Summary | Summary of Care ---
Author Name Unknown Organization [facility] Address [address] [facility] [place] [address] Phone [phone] Care Team Providers Care Relocation Associate Name Role Phone Aruna Valero Primary Care Provider [phone] Reason for Visit * Reason Onset Date Comments Order Request 01/28/2023 Encounter Details Date Type Department Care Team (Late st Contact Info) Description 01/28/2023 Telephone Gynecology/Obstetrics [facility] [address] [place] [address] Char Jama CRNP [address] [place] [address] Order Request Allergies No known active allergiesdocumented as of [...] money to get more. Never true 07/09/2022 [place] Depression Scale Answer Date Recorded [place] Depression Scale Total 3 01/08/2023 The thought [...] encounter Miscellaneous Notes * Telephone Encounter - Nery Blair LPN - 01/28/2023 4:02 PM EDT Patient at lab requesting qnatal. Had previously discussed with Char. documented in this encounter Plan of Treatment Upcoming Encounters Date Type Department Care Team (Late st Contact Info) Description 02/06/2023 2:00 PM EST Laboratory Laboratory, [facility] [address] [facility] [place] [phone] [facility] [address] [place] [address] 02/06/2023 2:15 PM EST Office Visit Gynecology/Obstetrics [facility] [address] [place] [address] Char Jama CRNP [address] [place] [address] Pending Results Name Type Priority Associated Diagnoses Date /Time QNATAL ADVANCED ([facility]) Lab Routine Supervision of other normal , antepartum 01/28/2023 4:09 PM EDT Scheduled Orders Name Type Priority Associated Diagnoses Orde r Schedule QNATAL ADVANCED ([facility]) Lab Routine Supervision of other normal , antepartum Expected: 01/28/2023 (Approximate), Expires: 01/29/2024 Health Maintenance Due Date Last Done Comments [...] Supervision of other normal , antepartum- Primary documented in this encounter Care Teams Relocation Associate Relationship Specialty Start Date End Date Aruna Valero DO [address] [place] [address] [place] [phone] PCP - General Internal Medicine 02/07/16 documented as of this encounter
--- OUTSIDE RECORDS SUMMARY | 2023-08-04 06:33 | External Medical Summary ---
Author Name Unknown Address Unknown Organization [facility] [address] [place] [address] Laboratory Report Ordering Provider Test Date Status ARNOLCATARINO 02/06/2023 15:03:55 Final Observation Date Value Abnormality Reference (Units ) Status Glucose [Moles/volume] in Serum or Plasma --1 hour post 50 g glucose PO 02/06/2023 15:03:55 113 70-129 (mg/dL) Final Performing Location [facility] [address] [place] [address]
--- OUTSIDE RECORDS SUMMARY | 2023-08-04 06:33 | External Medical Summary | Summary of Care ---
Author Name Unknown Organization [facility] Address [address] [facility] [place] [address] Phone [phone] Care Team Providers Care Fish Hatchery Laborer Name Role Phone Aruna Valero Primary Care Provider [phone] Reason for Visit * Reason Comments Outpatient Testing Encounter Details Date Type Department Care Team (Late st Contact Info) Description 02/06/2023 2:00 PM EST Laboratory Laboratory, [facility] [phone] [facility] 132 [facility] [address] Supervision of other normal , antepartum; Obesity, Class II, BMI 35-39.9, isolated (see actual BMI) Allergies No known active allergiesdocumented as of [...] money to get more. Never true 07/09/2022 [place] Depression Scale Answer Date Recorded [place] Depression Scale Total 3 01/08/2023 The thought [...] 03/06/2023 4:30 PM EST Office Visit Gynecology/Obstetrics [facility] [address] [facility] [place] [address] Cecy Garcia PA-C [address] [place] [address] 04/02/2023 2:15 PM EST Imaging Radiology [facility] 2nd Floor, [place] 132 [facility] [place] [address] 04/02/2023 4:15 PM EST Office Visit Gynecology/Obstetrics [facility] 132 [facility] [place] [address] Esperanza Ray, [facility] 400 [facility] [address] 05/01/2023 4:30 PM EST Office Visit Gynecology/Obstetrics [facility] [address] [facility] [place] [address] Cecy Garcia PA-C [address] [place] [address] 05/29/2023 4:30 PM EST Office Visit Gynecology/Obstetrics [facility] [address] [facility] [place] [address] Cecy Garcia PA-C [address] [place] [address] Pending Results Name Type Priority Associated Diagnoses Date /Time 50-G GESTATIONAL GLUCOSE, 1 HOUR Lab Routine Supervision of other normal , antepartum Obesity, Class II, BMI 35-39.9, isolated (see actual BMI) 02/06/2023 3:03 PM EST Health Maintenance Due Date Last Done [...] Diagnosis Supervision of other normal , antepartum Obesity, Class II, BMI 35-39.9, isolated (see actual BMI) Morbid obesity documented in this encounter Care Teams Fish Hatchery Laborer Relationship Specialty Start Date End Date Aruna Valero DO [address] [place] [address] [place] [phone] PCP - General Internal Medicine 02/07/16 documented as of this encounter
== END 2023-08-03 15:00 | disposition home or self-care (01) | DRG 768 ==
LOC: OPB 04:30 → 4S1 04:38 → 4E2 09:01